=== PATIENT | female | born 1930 | race Caucasian/White ===

== ENCOUNTER 2016-11-29 10:05 | Observation (INO) ==
--- NOTE | 2016-11-29 10:32 | Emergency Department Note ---
Disposition Clinical Impression: Parotitis, Weakness, Dehydration Disposition: Admitted As Inpatient Condition: Good Altered Mental Status HPI - General Chief Complaint: ED Altered Mental Status Stated Complaint: AMS/weakness Time Seen by Provider: 11/29/16 10:21 Source: family Limitations: altered mental status, physical limitation Nursing Notes Reviewed: Yes Vital Signs Reviewed: Yes - History of Present Illness HPI Narrative: Patient here for evaluation of altered mental status. Sent from PCP office. Patient had a fall several days ago and is on Xarelto as well as Plavix. Patient has had foul-smelling urine (wears depends) as well as a cough. Initial concern for activation of sepsis or noted by triage nurse. Patient is awake alert and oriented talking and appears comfortable. Patient has mild tachycardia but is afebrile with normal respirations. - Related Data Home Medications Medication Instructions Recorded Confirmed Memantine [Namenda] 10 mg PO BID 08/30/15 11/29/16 Metoprolol XL (24 HR) Succ [Toprol 25 mg PO QAM 08/30/15 11/29/16 XL] Sertraline [Zoloft] 50 mg PO QAM 08/30/15 11/29/16 Nitrofurantoin [Macrodantin] 50 mg PO HS 02/19/16 11/29/16 Donepezil [Aricept] 10 mg PO HS 04/29/16 11/29/16 Rivaroxaban [Xarelto] 15 mg PO QAM 04/29/16 11/29/16 Clopidogrel [Plavix] 75 mg PO DAILY 11/29/16 11/29/16 Mirtazapine [Remeron] 15 mg PO HS 11/29/16 11/29/16 Rosuvastatin Calcium [Crestor] 10 mg PO HS 11/29/16 11/29/16 Previous Rx's Medication Instructions Recorded Aspirin 81 mg PO DAILY #30 tab.chew 04/30/16 Lisinopril [Zestril] 5 mg PO DAILY #30 tablet 04/30/16 Nitroglycerin 0.4 mg SL Q5MIN PRN #25 tab.subl 04/30/16 Allergies Allergy/AdvReac Type Severity Reaction Status Date / Time No Known Allergies Allergy Verified 11/29/16 10:09 Limitations: ROS unobtainable due to patients medical condition Respiratory: Reports: cough Genitourinary: Reports: other (Foul-smelling urine) Neurological: Reports: other (Altered mental status) Past Medical History - Past Medical History Medical history: Reports: coronary artery disease, DVT, dementia, hepatitis, hypertension, myocardial infarction, osteoporosis, other Surgical history: Reports: cataract, hysterectomy, orthopedic, other, other Psychiatric history: Reports: depression, other CARDIAC CARE NURSE history: Reports: no CARDIAC CARE NURSE history - Social History Smoking Status: Never smoker Smokeless Tobacco Status: No Alcohol use: Reports: none Drug use: Reports: none Physical Exam - General Limitations: altered mental status, physical limitation General appearance: lethargic - Head Head exam: atraumatic, normocephalic - Eye Eye exam: Present: normal appearance - ENT ENT exam: normal exam - Neck Neck exam: Present: normal inspection - Chest Chest inspection: Present: normal inspection, symmetric chest wall rise. Absent : tenderness - Respiratory Respiratory exam: Present: normal lung sounds bilaterally. Absent: respiratory distress, wheezes - Cardiovascular Cardiovascular exam: Present: regular rate, normal rhythm - Abdominal Exam Abdominal exam: Present: soft, Non-Tender - Extremities Exam Extremities exam: Present: normal inspection. Absent: pedal edema - Expanded Neurological Exam Patient oriented to: Present: person, place Speech: Present: fluid speech Cranial nerves: EOM function (II, III, IV, ): Normal, facial sensation (V): Normal, facial palsy (VII): Normal, gag reflex (IX): Normal, spinal accessory function (XI): Normal, tongue deviation (XII): Normal Motor strength - LUE: 5/5 Motor strength - RUE: 5/5 Motor strength - LLE: 5/5 Motor strength - RLE: 5/5 Sensory exam upper extremity: light touch: Normal Sensory exam lower extremity: light touch: Normal Coma Scale Eye Opening: Spontaneous Coma Scale Motor Response: Obeys Commands Coma Scale Verbal Response: Oriented Coma Scale Total: 15 Course - Reevaluation(s) Reevaluation #1: Discussed results with family who feel that after 2 days of acutely decompensating from walking without a walker to having difficulty getting around without significant support that she should needs to stay for further evaluation and due to the unsafety of going home. Reevaluation #2: Discussed again with patient patient states she is feeling somewhat better after fluids. Discussed possible discharge if she feels like her strength is coming back. Currently there is significant shortage of peds and at this time and does not appear to be a life-threatening injury or infection. However she is unsafe to go home until she either symptomatically improves or the family is safe and comfortable taking care of her despite her significant weakening. - Consultations Consultation #1: Discussed with Dr. Jackson. Patient accepted for admission. Consultation #2: Dr. Cloud to bedside for admission with further investigation of peritonitis. Upon reexamination the patient does have swollen parotid gland with what appears to be alecia pus out of Stensen's duct when massaged. He has requested that we go ahead and give Unasyn as well as further image the parotid area to rule out abscess and mass. I discussed with radiology about best possible radiographic imaging and they recommended CT soft tissue neck with IV contrast as well as mentioning specific commenting on the parotid to make sure enough imaging is taken. The patient has arteritis the floor at time of inserting these orders however these orders were inserted and completed Vital Signs Temperature 99.7 F H 11/29/16 10:09 Pulse Rate 109 11/29/16 10:09 Respiratory Rate 14 11/29/16 10:09 Blood Pressure 109/75 11/29/16 10:09 O2 Sat by Pulse Oximetry 94 L 11/29/16 10:09 Temperature 98.7 F 11/29/16 16:05 Pulse Rate 79 11/29/16 16:05 Respiratory Rate 15 11/29/16 16:05 Blood Pressure 158/87 11/29/16 16:05 O2 Sat by Pulse Oximetry 100 11/29/16 16:05 Oxygen Delivery Oxygen Delivery Nasal Cannula Altered Mental Status - Medical Records Medical records reviewed: Yes I reviewed the patient's medical records. - Lab Data Lab results reviewed: Yes I reviewed the patient's lab results. Result diagrams: 11/29/16 10:43 11/29/16 10:43 Lab Results 11/29/16 11/29/16 11/29/16 Range/Units 10:43 10:43 10:43 WBC 10.9 (4.3-11.1) K/mcL RBC 4.73 (3.82-4.97) M/mcL Hgb 14.8 (11.5-15.4) g/dL Hct 43.6 (35.3-44.9) % MCV 92.2 (83.0-100.0) fL MCH 31.3 (28.0-33.3) pg MCHC 33.9 (31.6-35.5) g/dL RDW 14.9 H (11.5-14.5) % Plt Count 194 (140-400) K/mcL MPV 11.8 (9.4-12.4) fL Immature Gran % 0.4 (0-4) % Seg Neutrophils % 78.3 % Lymphocytes % 14.8 % Monocytes % 6.2 % Eosinophils % 0.0 % Basophils % 0.3 % Neutrophils # 8.6 (1.6-8.9) K/mcL Lymphocytes # 1.6 (0.6-4.6) K/mcL Monocytes # 0.7 (0.0-1.3) K/mcL Eosinophils # 0.0 (0.0-0.6) K/mcL Basophils # 0.0 (0.0-0.2) K/mcL PT 13.0 H (9.4-12.1) Seconds INR 1.2 Sodium 136 (136-145) mEq/L Potassium 3.7 (3.5-4.5) mEq/L Chloride 103 (98-109) mEq/L Carbon Dioxide 21 (19-29) mEq/L BUN 18 (7-20) mg/dL Creatinine 0.99 (0.57-1.11) mg/dL Est GFR ( Amer) > 60 (> 60) Est GFR (Non-Af Amer) 53 L (> 60) BUN/Creatinine Ratio 18 (6-26) Glucose 115 H (70-99) mg/dL Calculated Osmolality 285 (280-300) Calcium 9.1 (8.6-10.8) mg/dL Total Bilirubin 0.5 (0.2-1.2) mg/dL Direct Bilirubin 0.3 (0.0-0.5) mg/dL Indirect Bilirubin 0.2 (0.0-1.2) mg/dL AST 45 H (5-34) Units/L ALT 25 (0-55) Units/L Alkaline Phosphatase 86 (38-126) Units/L Troponin I (0-0.03) ng/mL Serum Total Protein 10.0 H (6.0-8.3) g/dL Albumin 3.5 (3.5-5.0) g/dL Globulin 6.5 H (2.4-3.5) g/dL Albumin/Globulin Ratio 0.5 L (1.1-2.2) TSH (0.350-4.840) mcIU/mL Urine Color (Yellow) Urine Clarity (Clear) Urine pH (5.0-8.0) pH Units Ur Specific [place] (1.010-1.025) Urine Protein (Neg-Trace) mg/dL Urine Glucose (UA) (Normal) mg/dL Urine Ketones (Negative) mg/dL Urine Blood (Negative) Urine Nitrite (Negative) Urine Bilirubin (Negative) Urine Urobilinogen (Normal) mg/dL Ur Leukocyte Esterase (Negative) Urine Microscopic RBC (0-3) per hpf Urine Microscopic WBC (0-3) per hpf Ur Squamous Epith Cells (None-Few) per lpf Urine Bacteria (None-Few) per hpf Hyaline Casts (None-Few) per lpf Ur Culture Indicated? (NO) 11/29/16 11/29/16 11/29/16 Range/Units 10:43 10:48 11:03 WBC (4.3-11.1) K/mcL RBC (3.82-4.97) M/mcL Hgb (11.5-15.4) g/dL Hct (35.3-44.9) % MCV (83.0-100.0) fL MCH (28.0-33.3) pg MCHC (31.6-35.5) g/dL RDW (11.5-14.5) % Plt Count (140-400) K/mcL MPV (9.4-12.4) fL Immature Gran % (0-4) % Seg Neutrophils % % Lymphocytes % % Monocytes % % Eosinophils % % Basophils % % Neutrophils # (1.6-8.9) K/mcL Lymphocytes # (0.6-4.6) K/mcL Monocytes # (0.0-1.3) K/mcL Eosinophils # (0.0-0.6) K/mcL Basophils # (0.0-0.2) K/mcL PT (9.4-12.1) Seconds INR Sodium (136-145) mEq/L Potassium (3.5-4.5) mEq/L Chloride (98-109) mEq/L Carbon Dioxide (19-29) mEq/L BUN (7-20) mg/dL Creatinine (0.57-1.11) mg/dL Est GFR ( Amer) (> 60) Est GFR (Non-Af Amer) (> 60) BUN/Creatinine Ratio (6-26) Glucose (70-99) mg/dL Calculated Osmolality (280-300) Calcium (8.6-10.8) mg/dL Total Bilirubin (0.2-1.2) mg/dL Direct Bilirubin (0.0-0.5) mg/dL Indirect Bilirubin (0.0-1.2) mg/dL AST (5-34) Units/L ALT (0-55) Units/L Alkaline Phosphatase (38-126) Units/L Troponin I 0.01 (0-0.03) ng/mL Serum Total Protein (6.0-8.3) g/dL Albumin (3.5-5.0) g/dL Globulin (2.4-3.5) g/dL Albumin/Globulin Ratio (1.1-2.2) TSH 0.945 (0.350-4.840) mcIU/mL Urine Color Yellow (Yellow) Urine Clarity Clear (Clear) Urine pH 5.5 (5.0-8.0) pH Units Ur Specific [place] 1.023 (1.010-1.025) Urine Protein 30 H (Neg-Trace) mg/dL Urine Glucose (UA) Normal (Normal) mg/dL Urine Ketones 40 H (Negative) mg/dL Urine Blood Negative (Negative) Urine Nitrite Negative (Negative) Urine Bilirubin Small H (Negative) Urine Urobilinogen Normal (Normal) mg/dL Ur Leukocyte Esterase Negative (Negative) Urine Microscopic RBC 0-3 (0-3) per hpf Urine Microscopic WBC 0-3 (0-3) per hpf Ur Squamous Epith Cells Many H (None-Few) per lpf Urine Bacteria None Seen (None-Few) per hpf Hyaline Casts Moderate H (None-Few) per lpf Ur Culture Indicated? NO (NO) - Radiology Data Radiology results reviewed: Yes I reviewed the patient's radiology results. Chest X-Ray 11/29/16 10:22 IMPRESSION: COPD with bibasilar chronic interstitial changes related to underlying COPD. No definite acute infiltrate. D/ / Godwin Gale MD / Godwin Gale MD Interpreting Provider: Godwin Gale MD Head CT 11/29/16 10:23 IMPRESSION: No acute intracranial hemorrhage or mass effect. Ventricles are slightly decreased in size from 01/08/2016. Mild cerebral white matter disease similar to the previous exam. Right parotid gland enlargement partially visualized. Findings may be on the basis of parotitis. D/ / Grady Rojas MD / Grady Rojas MD Interpreting Provider: Grady Rjoas MD Soft Tissue Neck CT 11/29/16 14:56 IMPRESSION: Enlargement of the right parotid gland with surrounding inflammation compatible with parotiditis. No abscess collection or sialolith is detected. These changes are presumably related to viral infection. D/ / 11/29/2016 16:09:14 Ayad Ruiz MD / Zara Wong Interpreting Provider: Ayad Ruiz MD - EKG Data EKG attestation: Yes I reviewed and interpreted this EKG. EKG results narrative: EKG shows sinus tachycardia with ventricular rate of 105. [place] 202. QRS 86. QTC 408. Patient has no significant ST elevations or depressions. EKG unchanged from previous of 04/29/16. Attestation Statement - Attestation Attestation: I examined this patient and my medical decision-making was reviewed with the [employer]BER/PA/Advanced Practice Nurse/Resident Physician. I agree with the documented findings, disposition and treatment plan as described except to the extent set forth below. Patient in the emergency department with a chief complaint of altered mental status. Brought in by her children. Worse over the past 2 days. Confused. Weak and unable to walk. Patient had a follow week ago and hit her head but was okay until a couple of days ago. No fever. They note she has foul breath. On exam she is awake and alert. She is in no acute distress. She is satting 91% on room air. Abdomen soft nontender. Lungs clear. Plan. Altered mental status workup with head CT. Patient found to have parotitis. Admitted to medicine.
[2016-11-29 10:53] LABS: Basophils % 0.3 %; Hematocrit 43.6 % (35.3-44.9); Hemoglobin 14.8 g/dL (11.5-15.4); Immature Granulocytes % 0.4 % (0-4); Lymphocytes # 1.6 K/mcL (0.6-4.6); Lymphocytes % 14.8 %; Mean Corpuscular HGB Conc 33.9 g/dL (31.6-35.5); Mean Corpuscular Hemoglobin 31.3 pg (28.0-33.3); Mean Corpuscular Volume 92.2 fL (83.0-100.0); Mean Platelet Volume 11.8 fL (9.4-12.4); Monocytes # 0.7 K/mcL (0.0-1.3); Monocytes % 6.2 %; Neutrophils # 8.6 K/mcL (1.6-8.9); Platelet Count 194 K/mcL (140-400); Red Blood Count 4.73 M/mcL (3.82-4.97); Red Cell Distribution Width 14.9 % (11.5-14.5); Segmented Neutrophils % 78.3 %
[2016-11-29 11:01] LABS: INR 1.2
[2016-11-29 11:06] LABS: Alanine Aminotransferase 25 Units/L (0-55); Albumin 3.5 g/dL (3.5-5.0); Albumin/Globulin Ratio 0.5 (1.1-2.2); Alkaline Phosphatase 86 Units/L (38-126); Aspartate Amino Transferase 45 Units/L (5-34); BUN/Creatinine Ratio 18 (6-26); Bilirubin,Direct 0.3 mg/dL (0.0-0.5); Bilirubin,Indirect 0.2 mg/dL (0.0-1.2); Bilirubin,Total 0.5 mg/dL (0.2-1.2); Blood Urea Nitrogen 18 mg/dL (7-20); Calcium 9.1 mg/dL (8.6-10.8); Carbon Dioxide 21 mEq/L (19-29); Chloride 103 mEq/L (98-109); Globulin 6.5 g/dL (2.4-3.5); Glucose 115 mg/dL (70-99); Osmolality,Calculated 285 (280-300); Potassium 3.7 mEq/L (3.5-4.5); Sodium 136 mEq/L (136-145); eGFR For African Americans > 60 (> 60); eGFR For Non-African Americans 53 (> 60)
[2016-11-29 11:12] LABS: Bilirubin,Urine Small (Negative); Blood,Urine Negative (Negative); Clarity,Urine Clear (Clear); Color,Urine Yellow (Yellow); Glucose,Urine (UA) Normal (Normal); Ketones,Urine 40 mg/dL (Negative); Leukocyte Esterase,Urine Negative (Negative); Nitrite,Urine Negative (Negative); PH,Urine 5.5 pH Units (5.0-8.0); Protein,Urine 30 mg/dL (Neg-Trace); Specific Gravity,Urine 1.023 (1.010-1.025); Urobilinogen,Urine Normal (Normal)
[2016-11-29 11:14] LABS: Bacteria,Urine None Seen per hpf (None-Few); Hyaline Casts,Urine Moderate per lpf (None-Few); RBC,Urine 0-3 per hpf (0-3); Squamous Epithelial Cell,Urine Many per lpf (None-Few); WBC,Urine 0-3 per hpf (0-3)
[2016-11-29] MEDS ORDERED: 0.9 % Sodium Chloride 500 ML IV ONE (14:03)
[2016-11-29] MEDS ORDERED: Ampicillin/Sulbactam 3,000 MG in 0.9 % Sodium Chloride Mini Bag 100 ML IVPB ONE (14:35)
[2016-11-29] MEDS ORDERED: Nitroglycerin 0.4 MG TAB.SUBL SL PRN (16:01)
[2016-11-29] MEDS ORDERED: Naloxone 0.4 MG/ML INJ IVP PRN (16:03)
[2016-11-29] MEDS ORDERED: *HR* HYDROcodone/Acet 5/325 mg TABLET PO PRN (16:03)
[2016-11-29] MEDS ORDERED: Ondansetron 4 MG/2 ML VIAL IVP PRN (16:03)
[2016-11-29] MEDS ORDERED: Ringers Solution, Lactated 1,000 ML ONE (16:35)
[2016-11-29] MEDS: Ringers Solution, Lactated 1,000 ML IVC SCH (16:50)
--- NOTE | 2016-11-29 18:06 | Internal Med History&Physical ---
Date of Encounter: 11/29/16 Time of Encounter: 15:10 Internal Medicine - H&P: HPI Chief complaint: Feeling weak, tired, fell down some days ago. Admitted From: Emergency Dept Plans for Post Hospital Care: Home History of present illness: Ms. Pillai is a 86 year old female who was brought in hospital because of lethargy and inability to walk with her walker, a significant decline from her baseline. No fever reported. Poor oral intake reported. She is a poor historian. She is only able to tell me she felt ill, and reports right jaw pain. She denies nausea or vomiting, but reports poor apetite. She denies new urinary symptoms. When asked why she could not walk, she says she does not know , she agrees to being weak. She lives at home alone, her son lives nearby and come homes daily to check on her. No family at bedside. Attempts to reach her son on the phone fails. She is unable to provide a code status. I will assume FULL CODE for now. ROS: Limited my patient's status, see HPI. Attempt was made to complete a 10- point RIS. Family history: The patient is unable to provide details. Vital Signs Temperature 99.7 F H 11/29/16 10:09 Pulse Rate 109 11/29/16 10:09 Respiratory Rate 14 11/29/16 10:09 Blood Pressure 109/75 11/29/16 10:09 O2 Sat by Pulse Oximetry 94 L 11/29/16 10:09 Temperature 98.7 F 11/29/16 16:05 Pulse Rate 79 11/29/16 16:05 Respiratory Rate 15 11/29/16 16:05 Blood Pressure 158/87 11/29/16 16:05 O2 Sat by Pulse Oximetry 100 11/29/16 16:05 Not in distress, she is ill but not toxic looking. lethargic. Not pale, anicteric, afebrile, acyanotic. Moist mucosa, EOMI, PERRL. HEENT: No JVD. Right parotid swelling and induration. No fluctuance, very tender +++. Some purulence observed over the pancreatitic duct on massaging the parotid. No cervical lymphadenopathy, Chest : CTAB Heart: RRR, HS1/2, no m/r/g. Abdomen: soft, non-tender, no guarding, no rebound, no masses, BS+ : No flank tenderness, no CVA tenderness, no suprapubic tenderness. LEAD CARGOMAN: AAO x 3, no focal neurological deficits. She is logical in is thought process. Neck is supple. Skin: No active skin lesion. Extremities: Trace pedal edema, normal pedal pulses, no calf tenderness, bilaterally Lab Results 11/29/16 11/29/16 11/29/16 Range/Units 10:43 10:43 10:43 WBC 10.9 (4.3-11.1) K/mcL RBC 4.73 (3.82-4.97) M/mcL Hgb 14.8 (11.5-15.4) g/dL Hct 43.6 (35.3-44.9) % MCV 92.2 (83.0-100.0) fL MCH 31.3 (28.0-33.3) pg MCHC 33.9 (31.6-35.5) g/dL RDW 14.9 H (11.5-14.5) % Plt Count 194 (140-400) K/mcL MPV 11.8 (9.4-12.4) fL Immature Gran % 0.4 (0-4) % Seg Neutrophils % 78.3 % Lymphocytes % 14.8 % Monocytes % 6.2 % Eosinophils % 0.0 % Basophils % 0.3 % Neutrophils # 8.6 (1.6-8.9) K/mcL Lymphocytes # 1.6 (0.6-4.6) K/mcL Monocytes # 0.7 (0.0-1.3) K/mcL Eosinophils # 0.0 (0.0-0.6) K/mcL Basophils # 0.0 (0.0-0.2) K/mcL PT 13.0 H (9.4-12.1) Seconds INR 1.2 Sodium 136 (136-145) mEq/L Potassium 3.7 (3.5-4.5) mEq/L Chloride 103 (98-109) mEq/L Carbon Dioxide 21 (19-29) mEq/L BUN 18 (7-20) mg/dL Creatinine 0.99 (0.57-1.11) mg/dL Est GFR ( Amer) > 60 (> 60) Est GFR (Non-Af Amer) 53 L (> 60) BUN/Creatinine Ratio 18 (6-26) Glucose 115 H (70-99) mg/dL Calculated Osmolality 285 (280-300) Calcium 9.1 (8.6-10.8) mg/dL Total Bilirubin 0.5 (0.2-1.2) mg/dL Direct Bilirubin 0.3 (0.0-0.5) mg/dL Indirect Bilirubin 0.2 (0.0-1.2) mg/dL AST 45 H (5-34) Units/L ALT 25 (0-55) Units/L Alkaline Phosphatase 86 (38-126) Units/L Troponin I (0-0.03) ng/mL Serum Total Protein 10.0 H (6.0-8.3) g/dL Albumin 3.5 (3.5-5.0) g/dL Globulin 6.5 H (2.4-3.5) g/dL Albumin/Globulin Ratio 0.5 L (1.1-2.2) TSH (0.350-4.840) mcIU/mL Urine Color (Yellow) Urine Clarity (Clear) Urine pH (5.0-8.0) pH Units Ur Specific [place] (1.010-1.025) Urine Protein (Neg-Trace) mg/dL Urine Glucose (UA) (Normal) mg/dL Urine Ketones (Negative) mg/dL Urine Blood (Negative) Urine Nitrite (Negative) Urine Bilirubin (Negative) Urine Urobilinogen (Normal) mg/dL Ur Leukocyte Esterase (Negative) Urine Microscopic RBC (0-3) per hpf Urine Microscopic WBC (0-3) per hpf Ur Squamous Epith Cells (None-Few) per lpf Urine Bacteria (None-Few) per hpf Hyaline Casts (None-Few) per lpf Ur Culture Indicated? (NO) 11/29/16 11/29/16 11/29/16 Range/Units 10:43 10:48 11:03 WBC (4.3-11.1) K/mcL RBC (3.82-4.97) M/mcL Hgb (11.5-15.4) g/dL Hct (35.3-44.9) % MCV (83.0-100.0) fL MCH (28.0-33.3) pg MCHC (31.6-35.5) g/dL RDW (11.5-14.5) % Plt Count (140-400) K/mcL MPV (9.4-12.4) fL Immature Gran % (0-4) % Seg Neutrophils % % Lymphocytes % % Monocytes % % Eosinophils % % Basophils % % Neutrophils # (1.6-8.9) K/mcL Lymphocytes # (0.6-4.6) K/mcL Monocytes # (0.0-1.3) K/mcL Eosinophils # (0.0-0.6) K/mcL Basophils # (0.0-0.2) K/mcL PT (9.4-12.1) Seconds INR Sodium (136-145) mEq/L Potassium (3.5-4.5) mEq/L Chloride (98-109) mEq/L Carbon Dioxide (19-29) mEq/L BUN (7-20) mg/dL Creatinine (0.57-1.11) mg/dL Est GFR ( Amer) (> 60) Est GFR (Non-Af Amer) (> 60) BUN/Creatinine Ratio (6-26) Glucose (70-99) mg/dL Calculated Osmolality (280-300) Calcium (8.6-10.8) mg/dL Total Bilirubin (0.2-1.2) mg/dL Direct Bilirubin (0.0-0.5) mg/dL Indirect Bilirubin (0.0-1.2) mg/dL AST (5-34) Units/L ALT (0-55) Units/L Alkaline Phosphatase (38-126) Units/L Troponin I 0.01 (0-0.03) ng/mL Serum Total Protein (6.0-8.3) g/dL Albumin (3.5-5.0) g/dL Globulin (2.4-3.5) g/dL Albumin/Globulin Ratio (1.1-2.2) TSH 0.945 (0.350-4.840) mcIU/mL Urine Color Yellow (Yellow) Urine Clarity Clear (Clear) Urine pH 5.5 (5.0-8.0) pH Units Ur Specific [place] 1.023 (1.010-1.025) Urine Protein 30 H (Neg-Trace) mg/dL Urine Glucose (UA) Normal (Normal) mg/dL Urine Ketones 40 H (Negative) mg/dL Urine Blood Negative (Negative) Urine Nitrite Negative (Negative) Urine Bilirubin Small H (Negative) Urine Urobilinogen Normal (Normal) mg/dL Ur Leukocyte Esterase Negative (Negative) Urine Microscopic RBC 0-3 (0-3) per hpf Urine Microscopic WBC 0-3 (0-3) per hpf Ur Squamous Epith Cells Many H (None-Few) per lpf Urine Bacteria None Seen (None-Few) per hpf Hyaline Casts Moderate H (None-Few) per lpf Ur Culture Indicated? NO (NO) EKG shows sinus tachycardia with ventricular rate of 105. [place] 202. QRS 86. QTC 408. Patient has no significant ST elevations or depressions. EKG unchanged from previous of 04/29/16. CXR: Non-acute, no infiltrates Head CT: mild cerebral atrophy, chronic microvascular changes, upper CTsoft tissue of neck: parotitis, no abscess. imp Mild encephalopathy related to acute parotitis and dehydration. Acute right parotitis, no CT evidence for abscess, though purulent material exuding from parotid duct on massaging the right parotid gland. Probably viral with early secondary bacterial infection. Lethargy related to above Mild dehydration due to por intake related to above Chronic morbidities CAD s/p AL DVT/PE on Apixaban HTN Osteoporosis Dementia History of hepatitis. PLAN Admit IVF RL @ 75 IV Unasyn 3 g Q8H Tylenol for pain and fever, may use norco for moderate to severe pain Oral hygiene Pureed diet. Continue other medications of chronic morbidities. On Xarelto for DVT/PE I discussed my assessment with the patient, she verbalized understanding and is agreeable to admission. She is admitted for evaluation and treatment of acute parotitis associated with mild encephalopathy. Past Med Surg Social Fam HX - Past Medical History Medical history: coronary artery disease, DVT, dementia, hepatitis, hypertension , myocardial infarction, osteoporosis, other Psychiatric history: depression, other - Past Surgical History Surgical History: cataract, hysterectomy, orthopedic, other, other - Social History Smoking Status: Never smoker Smokeless Tobacco Status: No Alcohol use: none Drug use: none - Family History Mother Hx Family Cardiac Disorders: Yes (Heart attack) Internal Medicine - H&P: Meds Memantine [Namenda] 10 mg PO BID 08/30/15 [History] Metoprolol XL (24 HR) Succ [Toprol XL] 25 mg PO QAM 08/30/15 [History] Sertraline [Zoloft] 50 mg PO QAM 08/30/15 [History] Nitrofurantoin [Macrodantin] 50 mg PO HS 02/19/16 [History] Donepezil [Aricept] 10 mg PO HS 04/29/16 [History] Rivaroxaban [Xarelto] 15 mg PO QAM 04/29/16 [History] Aspirin 81 mg PO DAILY #30 tab.chew 04/30/16 [Rx] Lisinopril [Zestril] 5 mg PO DAILY #30 tablet 04/30/16 [Rx] Nitroglycerin 0.4 mg SL Q5MIN PRN #25 tab.subl 04/30/16 [Rx] Clopidogrel [Plavix] 75 mg PO DAILY 11/29/16 [History] Mirtazapine [Remeron] 15 mg PO HS 11/29/16 [History] Rosuvastatin Calcium [Crestor] 10 mg PO HS 11/29/16 [History] Allergies No Known Allergies Allergy (Verified 11/29/16 10:09) All Systems PM: A 10-system review of systems was performed and is negative for pertinent findings except as documented above in the HPI. - Constitutional Vitals: Temp Pulse Resp BP Pulse Ox 98.7 F 79 15 158/87 100 11/29/16 16:05 11/29/16 16:05 11/29/16 16:05 11/29/16 16:05 11/29/16 16:05 Internal Med - H&P Results - Labs CBC & Chem 7: 11/29/16 10:43 11/29/16 10:43 - Impressions ITS Impressions Soft Tissue Neck CT 11/29/16 14:56 IMPRESSION: Enlargement of the right parotid gland with surrounding inflammation compatible with parotiditis. No abscess collection or sialolith is detected. These changes are presumably related to viral infection. D/ / 11/29/2016 16:09:14 Ayad Ruiz MD / Zara Wong Interpreting Provider: Ayad Ruiz MD - VTE Reasons for not Prescribing Prophylaxis: Not indicated-Anticoagulated or INR therapeutic
[2016-11-29] MEDS: Acetaminophen 325 MG TABLET PO PRN (19:45)
[2016-11-29] MEDS: Mirtazapine 15 MG TABLET PO SCH (19:46)
[2016-11-29] MEDS: Ampicillin/Sulbactam 3,000 MG in 0.9 % Sodium Chloride Mini Bag 100 ML IVPB SCH (23:34)
[2016-11-30] MEDS: Acetaminophen 325 MG TABLET PO PRN (03:21)
[2016-11-30] MEDS: Ampicillin/Sulbactam 3,000 MG in 0.9 % Sodium Chloride Mini Bag 100 ML IVPB SCH ×3 (08:03→23:11)
[2016-11-30] MEDS: Ringers Solution, Lactated 1,000 ML IVC SCH (08:04)
[2016-11-30] MEDS: Metoprolol XL (24 HR) Succ 25 MG TAB.ER.24H PO SCH (08:05)
[2016-11-30] MEDS: Aspirin 81 MG TAB.CHEW PO SCH (08:05)
[2016-11-30] MEDS: *HR* Rivaroxaban 15 MG TABLET PO SCH (08:05)
--- NOTE | 2016-11-30 11:46 | Electrocardiograph Report ---
[address] [place] [address] Test Date: 2016-11-29 Pat Name: Alycia Pillai Department: 105 Room: 3B13 Gender: F Leasing Agent: : [id number] Requested By: Todd Escobar Order Number: [id number] Reading MD: Zachary Fontanez MD Measurements Intervals Bennett Rate: 105 P: 31 AL: 202 QRS: -68 QRSD: 86 T: 46 QT: 347 QTc: 408 Interpretive Statements SINUS TACHYCARDIA LEFT ANTERIOR FASCICULAR BLOCK POOR R WAVE PROGRESSION INFERIOR MYOCARDIAL INFARCTION, PROBABLY OLD Electronically Signed On 11-30-2016 11:44:46 EST by Zachary Fontanez MD
--- NOTE | 2016-11-30 14:48 | Internal Med Progress Note ---
Date of Encounter: 11/30/16 Time of Encounter: 14:48 - Assessment and plan (1) Volume depletion due to hemorrhage Current Visit: Yes Status: Acute (2) Parotitis Current Visit: Yes Status: Acute - Time Spent With Patient Plan Continue Unasyn. We will consult ENT. Signs of fluid overload with discontinue IV fluid. 25 - 35 minutes - Subjective Interval history: Patient denies any dizziness lightheadedness. Patient denies any chest pain or trouble breathing. Patient denies any change in her bowel movement. Continue to have pain right side of her face - Constitutional Vitals: Temp Pulse Resp BP Pulse Ox 98.2 F 79 15 123/76 94 L 11/30/16 10:52 11/30/16 10:52 11/30/16 10:52 11/30/16 10:52 11/30/16 10:52 - Head Head exam: Present: atraumatic, normocephalic - ENT ENT exam: Present: mucous membranes moist Additional comments: Rt parotid gland tenderness and swelling . - Neck Neck exam general surgery: Present: lymphadenopathy, supple, trachea midline - Respiratory Respiratory exam: Present: decreased breath sounds, rales (Bilateral lung base) . Absent: accessory muscle use, rhonchi, wheezes - Cardiovascular Cardiovascular exam: Present: RRR, +S1, +S2. Absent: diastolic murmur, gallop, rubs, systolic murmur - GI/Abdominal GI/Abdominal exam: Present: normal bowel sounds, soft, no peritoneal signs. Absent: distended, tenderness - Extremities Exam Extremities exam: Present: warm, radial pulses palpable and symetrical. Absent : calf tenderness, cyanotic, pedal edema - Skin Skin exam: Present: dry, intact Internal Medicine: Result - Labs CBC & Chem 7: 11/29/16 10:43 11/29/16 10:43 - ABG Interpretation ABG results: PT/INR, D-dimer PT 13.0 Seconds (9.4-12.1) H 11/29/16 10:43 - Impressions Impressions Soft Tissue Neck CT 11/29/16 14:56 IMPRESSION: Enlargement of the right parotid gland with surrounding inflammation compatible with parotiditis. No abscess collection or sialolith is detected. These changes are presumably related to viral infection. D/ / 11/29/2016 16:09:14 Ayad Ruiz MD / Zara Wong Interpreting Provider: Ayad Ruiz MD - VTE Reasons for not Prescribing Prophylaxis: Not indicated-Anticoagulated or INR therapeutic Consult Discharge Plan - Plan Referrals: Hayde Dodson DO [Primary Care Provider] - 12/07/16 1:30 pm
--- NOTE | 2016-11-30 17:15 | ENT - Consult Note ---
Date of Encounter: 11/30/16 Time of Encounter: 17:13 Assessment and Plan (1) Dehydration Current Visit: Yes Status: Acute Recommend gentle rehydration. (2) Parotitis Current Visit: Yes Status: Acute Of the right parotid gland. This is likely secondary to dehydration. Recommend continuing IV antibiotics and gentle rehydration. We will also start patient on parotid massage and warm compresses to the right parotid gland at least 4 times daily. This was discussed with the nurse that is currently taking care of the patient. Patient to get a dose of her pain medicine prior to massage. It was explained to patient that this is a very necessary procedure to help break up the infection and in the right parotid gland. Patient understands. Also recommend sour candies or sialagogues. History of Present Illness Consult date: 11/30/16 Reason for ENT Consult: other (Right Parotitis) History of present illness: Patient is an 86-year-old female who lives at home with help from a caregiver. Over the last few days she has had decreased by mouth intake. Patient was noted to be dehydrated and began to have swelling in the right face. Patient was brought to the hospital yesterday for evaluation and treatment of this right facial and neck swelling and dehydration. Patient was subsequently admitted and placed on IV antibiotics. I was counseled to do evaluate this patient for her parotitis for further instruction. Patient currently tolerating by mouth. She is taking sour candies by mouth. Patient with some sour taste in the mouth. Patient denies any previous swelling of Parotid gland in the past. Past Med Surg Social Fam HX - Past Medical History Medical history: coronary artery disease, DVT, dementia, hepatitis, hypertension , myocardial infarction, osteoporosis, other Psychiatric history: depression, other - Past Surgical History Surgical History: cataract, hysterectomy, orthopedic, other, other - Social History Smoking Status: Never smoker Smokeless Tobacco Status: No Alcohol use: none Drug use: none - Family History Mother Hx Family Cardiac Disorders: Yes (Heart attack) Medications and Allergies Memantine [Namenda] 10 mg PO BID 08/30/15 [History] Metoprolol XL (24 HR) Succ [Toprol XL] 25 mg PO QAM 08/30/15 [History] Sertraline [Zoloft] 50 mg PO QAM 08/30/15 [History] Nitrofurantoin [Macrodantin] 50 mg PO HS 02/19/16 [History] Donepezil [Aricept] 10 mg PO HS 04/29/16 [History] Rivaroxaban [Xarelto] 15 mg PO QAM 04/29/16 [History] Aspirin 81 mg PO DAILY #30 tab.chew 04/30/16 [Rx] Lisinopril [Zestril] 5 mg PO DAILY #30 tablet 04/30/16 [Rx] Nitroglycerin 0.4 mg SL Q5MIN PRN #25 tab.subl 04/30/16 [Rx] Clopidogrel [Plavix] 75 mg PO DAILY 11/29/16 [History] Mirtazapine [Remeron] 15 mg PO HS 11/29/16 [History] Rosuvastatin Calcium [Crestor] 10 mg PO HS 11/29/16 [History] Allergies No Known Allergies Allergy (Verified 11/29/16 10:09) ENT - ROS - Constitutional Constitutional ROS: as per HPI ENT Exam Initial Vital Signs Temp Pulse Resp BP Pulse Ox 99.7 F H 109 14 109/75 94 L 11/29/16 10:09 11/29/16 10:09 11/29/16 10:09 11/29/16 10:09 11/29/16 10:09 - General physical appearance well developed, no distress - Eyes PERRL, normal ocular movement - ENT normal pinna, normal nares, dry mucosa (Tongue mobile midline. Palate raises symmetrically tonsils are surgically absent bilaterally, small amount of very thick mucus from the right parotid duct on massage of the parotid gland.), Other - Neck trachea midline, no lymphadectomy, other (induration of the right parotid on palpation no fluctuance) - Respiratory normal expansion, normal respiratory effort - Neurologic CN 2-12 grossly intact (Facial nerve movement is symmetric) - Psychiatric oriented to time, oriented to person, oriented to place, speech is normal Exam Initial Vital Signs Temp Pulse Resp BP Pulse Ox 99.7 F H 109 14 109/75 94 L 11/29/16 10:09 11/29/16 10:09 11/29/16 10:09 11/29/16 10:09 11/29/16 10:09 Results - Labs 11/29/16 10:43 11/29/16 10:43 Abnormal lab results RDW 14.9 % (11.5-14.5) H 11/29/16 10:43 PT 13.0 Seconds (9.4-12.1) H 11/29/16 10:43 Est GFR (Non-Af Amer) 53 (> 60) L 11/29/16 10:43 Glucose 115 mg/dL (70-99) H 11/29/16 10:43 AST 45 Units/L (5-34) H 11/29/16 10:43 Serum Total Protein 10.0 g/dL (6.0-8.3) H 11/29/16 10:43 Globulin 6.5 g/dL (2.4-3.5) H 11/29/16 10:43 Albumin/Globulin Ratio 0.5 (1.1-2.2) L 11/29/16 10:43 Urine Protein 30 mg/dL (Neg-Trace) H 11/29/16 11:03 Urine Ketones 40 mg/dL (Negative) H 11/29/16 11:03 Urine Bilirubin Small (Negative) H 11/29/16 11:03 Ur Squamous Epith Cells Many per lpf (None-Few) H 11/29/16 11:03 Hyaline Casts Moderate per lpf (None-Few) H 11/29/16 11:03 All other labs normal. Consult Discharge Plan - Plan Referrals: Hayde Dodson DO [Primary Care Provider] - 12/07/16 1:30 pm
[2016-11-30] MEDS: Mirtazapine 15 MG TABLET PO SCH (19:50)
[2016-12-01] MEDS: Acetaminophen 325 MG TABLET PO PRN (04:23)
[2016-12-01] MEDS: Ampicillin/Sulbactam 3,000 MG in 0.9 % Sodium Chloride Mini Bag 100 ML IVPB SCH (07:23)
[2016-12-01] MEDS: Aspirin 81 MG TAB.CHEW PO SCH (08:48)
[2016-12-01] MEDS: *HR* Rivaroxaban 15 MG TABLET PO SCH (08:49)
[2016-12-01] MEDS: Metoprolol XL (24 HR) Succ 25 MG TAB.ER.24H PO SCH (08:49)
--- NOTE | 2016-12-01 11:16 | Discharge Summary ---
Date of Encounter: 12/01/16 Time of Encounter: 11:14 - Discharge Diagnosis (1) Volume depletion due to hemorrhage Priority: Secondary Status: Acute (2) Parotitis Priority: Primary Status: Acute - Discharge Medications Prescriptions: HYDROcodone/Acet 5/325 mg [[place] 5-325 mg] 1 tab PO Q6HR PRN #40 tablet PRN Reason: Moderate Pain (4-6) Amoxicillin/Clavulanate [Augmentin] 875 mg PO BIDWM #20 tablet Cyanocobalamin (B-12) [Vitamin B12] 1,000 mcg PO DAILY #90 tablet Ergocalciferol (VITAMIN D2) [Drisdol (50,000 Unit)] 50,000 unit PO QWEEK #15 capsule Home Medications: Memantine [Namenda] 10 mg PO BID 08/30/15 [History] Metoprolol XL (24 HR) Succ [Toprol XL] 25 mg PO QAM 08/30/15 [History] Sertraline [Zoloft] 50 mg PO QAM 08/30/15 [History] Nitrofurantoin [Macrodantin] 50 mg PO HS 02/19/16 [History] Donepezil [Aricept] 10 mg PO HS 04/29/16 [History] Rivaroxaban [Xarelto] 15 mg PO QAM 04/29/16 [History] Aspirin 81 mg PO DAILY #30 tab.chew 04/30/16 [Rx] Lisinopril [Zestril] 5 mg PO DAILY #30 tablet 04/30/16 [Rx] Nitroglycerin 0.4 mg SL Q5MIN PRN #25 tab.subl 04/30/16 [Rx] Clopidogrel [Plavix] 75 mg PO DAILY 11/29/16 [History] Mirtazapine [Remeron] 15 mg PO HS 11/29/16 [History] Rosuvastatin Calcium [Crestor] 10 mg PO HS 11/29/16 [History] Amoxicillin/Clavulanate [Augmentin] 875 mg PO BIDWM #20 tablet 12/01/16 [Rx] Cyanocobalamin (B-12) [Vitamin B12] 1,000 mcg PO DAILY #90 tablet 12/01/16 [Rx] Ergocalciferol (VITAMIN D2) [Drisdol (50,000 Unit)] 50,000 unit PO QWEEK #15 capsule 12/01/16 [Rx] HYDROcodone/Acet 5/325 mg [[place] 5-325 mg] 1 tab PO Q6HR PRN #40 tablet [Rx] Allergies/Adverse Reactions: Allergies No Known Allergies Allergy (Verified 11/29/16 10:09) Procedures/tests Complete & Pending: Procedures Performed prior 72 hours Category Date Time Status CT soft tissue neck w con [CT] Stat Cat Scan 11/29/16 14:56 Completed Date of admission: 11/29/16 14:49 Primary care physician: Josesito Tony Consults: 11/29/16 16:09 Consult to Physical Therapy [CONS] Routine Comment: Evaluate, develop and implement POC OT [Consult to Occupational Therapy] [CONS] Routine Comment: Evaluate, develop and implement POC 11/30/16 16:11 Consult to ENT [CONS] Routine Consulting Provider: NASRIN León Reason for Consult: Parotitis Call Completed: Yes Discharging clinician: Kiko Flores - Patient Status Disposition: Home, Self-Care Condition: Good Functional capacity at discharge: uses cane/walker Overall status at discharge: patient is progressing back to baseline - Discharge Instructions Instructions: Hydrocodone/Acetaminophen (By mouth), Amoxicillin/Clavulanate Potassium (By mouth), Ergocalciferol (By mouth), Vitamin B-12 (Cyanocobalamin) ( By mouth), Dehydration (DC), Parotid Duct Obstruction (GEN), Weakness (GEN) Follow Up With: Hayde Dodson DO [Primary Care Provider] - 12/07/16 1:30 pm Additional Instructions: Parotid massage four times a day with firm massage. Warm compresses as needed. Sour candies as often as tolerated. - Diet and Activity Activity: as per physical therapy Diet: low fat, low cholesterol, low salt diet Hospital course: 86-year-old female brought to the hospital with complaining of feeling lethargic inability to walk with her walker. Patient was complaining of generalized weakness. Patient was complaining of right shoulder pain, markedly decreased oral intake due to the. Patient was noted to be dehydrated and began to have swelling in the right face. Patient was subsequently admitted and placed on IV antibiotics. CAT scan face showed right parotid gland swelling no evidence of abscess. Patient responded well to antibiotic, ENT was consulted and recommended to continue antibiotic as an outpatient. Recommended parotid masssour candy. I discussed with ENT again today she agreed with the discharge planning. I had long discussion with the son and patient at bedside. Patient and son feel comfortable for patient to return at home she had caregiver . Patient tolerated all her meals. Patient is ambulating without any problem. Mental status back to baseline - Time Spent with Patient Total time spent providing and/or coordinating discharge services: Greater than 30 minutes - Constitutional Vitals: Temp Pulse Resp BP Pulse Ox 98.5 F 68 15 124/70 96 12/01/16 10:46 12/01/16 10:46 12/01/16 10:46 12/01/16 10:46 12/01/16 10:46 - Head Head exam: Present: atraumatic (marked improvement of her right parotid gland swelling and tenderness ) - Respiratory Respiratory exam: Present: CTAB. Absent: accessory muscle use, rales, rhonchi, wheezes - Cardiovascular Cardiovascular exam: Present: RRR, +S1, +S2. Absent: diastolic murmur, gallop, rubs, systolic murmur - GI/Abdominal GI/Abdominal exam: Present: normal bowel sounds, soft, no peritoneal signs. Absent: distended, tenderness - Extremities Exam Extremities exam: Present: warm, radial pulses palpable and symetrical. Absent : calf tenderness, cyanotic, pedal edema - Skin Skin exam: Present: dry, intact - VTE Reasons for not Prescribing Prophylaxis: Not indicated-Anticoagulated or INR therapeutic
[2016-12-01 14:58] VITALS: BP 133/85
--- NOTE | 2016-12-07 16:58 | Physician Discharge Referral ---
ExtendedCare Referral Info Transfer To: SNF Provider in Charge after Transfer: PCP Institutional Level of Care: Intermediate - MR - Transfer Medications Prescriptions: HYDROcodone/Acet 5/325 mg [[place] 5-325 mg] 1 tab PO Q6HR PRN #40 tablet PRN Reason: Moderate Pain (4-6) Amoxicillin/Clavulanate [Augmentin] 875 mg PO BIDWM #20 tablet Cyanocobalamin (B-12) [Vitamin B12] 1,000 mcg PO DAILY #90 tablet Ergocalciferol (VITAMIN D2) [Drisdol (50,000 Unit)] 50,000 unit PO QWEEK #15 capsule Home Medications: Memantine [Namenda] 10 mg PO BID 08/30/15 [History] Metoprolol XL (24 HR) Succ [Toprol XL] 25 mg PO QAM 08/30/15 [History] Sertraline [Zoloft] 50 mg PO QAM 08/30/15 [History] Nitrofurantoin [Macrodantin] 50 mg PO HS 02/19/16 [History] Donepezil [Aricept] 10 mg PO HS 04/29/16 [History] Rivaroxaban [Xarelto] 15 mg PO QAM 04/29/16 [History] Aspirin 81 mg PO DAILY #30 tab.chew 04/30/16 [Rx] Lisinopril [Zestril] 5 mg PO DAILY #30 tablet 04/30/16 [Rx] Nitroglycerin 0.4 mg SL Q5MIN PRN #25 tab.subl 04/30/16 [Rx] Clopidogrel [Plavix] 75 mg PO DAILY 11/29/16 [History] Mirtazapine [Remeron] 15 mg PO HS 11/29/16 [History] Rosuvastatin Calcium [Crestor] 10 mg PO HS 11/29/16 [History] Amoxicillin/Clavulanate [Augmentin] 875 mg PO BIDWM #20 tablet 12/01/16 [Rx] Cyanocobalamin (B-12) [Vitamin B12] 1,000 mcg PO DAILY #90 tablet 12/01/16 [Rx] Ergocalciferol (VITAMIN D2) [Drisdol (50,000 Unit)] 50,000 unit PO QWEEK #15 capsule 12/01/16 [Rx] HYDROcodone/Acet 5/325 mg [[place] 5-325 mg] 1 tab PO Q6HR PRN #40 tablet [Rx] Allergies/Adverse Reactions: Allergies No Known Allergies Allergy (Verified 11/29/16 10:09) - Respiratory Orders Oxygen / L per min Smoking Cessation: Smoking cessation has been advised. For more information, call the [place] Tobacco Quit Line at 8-349-AQYJ-NOW. - Mobility Orders Ambulate - Rehabiliation Orders Rehab Orders: Evaluation for Physical Therapy, Evaluation for Occupational Therapy - Treatments Skin tear care topically daily PRN per policy - Diet Orders Regular CERTIFICATION: I certify that the transfer of the above named patient to an Extended Care Facility is necessary for the continuing treatment of the diagnosis listed. The above information is true and accurate reflection of patient's current condition. Confidential - Redisclosure prohibited without a patient's written consent.
--- NOTE | 2016-12-08 11:48 | Physician Discharge Referral ---
Home Health/Hosp Referral Info Transfer to: Home Health Provider in Charge Post Discharge: PCP - Diagnosis (1) Parotitis Status: Acute (2) Volume depletion due to hemorrhage Status: Acute (3) Weakness Status: Acute (4) CAD (coronary artery disease) Status: Chronic (5) Dementia Status: Chronic (6) HTN (hypertension) Status: Chronic - Respiratory Orders Smoking Cessation: Smoking cessation has been advised. For more information, call the [place] Tobacco Quit Line at 3-467-IMGD-NOW. - Diet/Nutrition Diet/Nutrition Orders: Cardiac - Activity Activity Orders: Ambulate, Walker - Services Needed Following services are medically necessary services: Nursing, Physical Therapy - Transfer Medications Prescriptions: HYDROcodone/Acet 5/325 mg [[place] 5-325 mg] 1 tab PO Q6HR PRN #40 tablet PRN Reason: Moderate Pain (4-6) Amoxicillin/Clavulanate [Augmentin] 875 mg PO BIDWM #20 tablet Cyanocobalamin (B-12) [Vitamin B12] 1,000 mcg PO DAILY #90 tablet Ergocalciferol (VITAMIN D2) [Drisdol (50,000 Unit)] 50,000 unit PO QWEEK #15 capsule Home Medications: Memantine [Namenda] 10 mg PO BID 08/30/15 [History] Metoprolol XL (24 HR) Succ [Toprol XL] 25 mg PO QAM 08/30/15 [History] Sertraline [Zoloft] 50 mg PO QAM 08/30/15 [History] Nitrofurantoin [Macrodantin] 50 mg PO HS 02/19/16 [History] Donepezil [Aricept] 10 mg PO HS 04/29/16 [History] Rivaroxaban [Xarelto] 15 mg PO QAM 04/29/16 [History] Aspirin 81 mg PO DAILY #30 tab.chew 04/30/16 [Rx] Lisinopril [Zestril] 5 mg PO DAILY #30 tablet 04/30/16 [Rx] Nitroglycerin 0.4 mg SL Q5MIN PRN #25 tab.subl 04/30/16 [Rx] Clopidogrel [Plavix] 75 mg PO DAILY 11/29/16 [History] Mirtazapine [Remeron] 15 mg PO HS 11/29/16 [History] Rosuvastatin Calcium [Crestor] 10 mg PO HS 11/29/16 [History] Amoxicillin/Clavulanate [Augmentin] 875 mg PO BIDWM #20 tablet 12/01/16 [Rx] Cyanocobalamin (B-12) [Vitamin B12] 1,000 mcg PO DAILY #90 tablet 12/01/16 [Rx] Ergocalciferol (VITAMIN D2) [Drisdol (50,000 Unit)] 50,000 unit PO QWEEK #15 capsule 12/01/16 [Rx] HYDROcodone/Acet 5/325 mg [[place] 5-325 mg] 1 tab PO Q6HR PRN #40 tablet [Rx] Allergies/Adverse Reactions: Allergies No Known Allergies Allergy (Verified 11/29/16 10:09) Certification: Further, I certify that my clinical findings support that this patient is homebound (i.e. absences from home require considerable and taxing effort and are for medical reasons or bahai services or infrequently or short duration when for other reasons) because: Homebound Reason: Patient requires assistance of a person or device to safely leave home, Altered mental status requiring supervision when leaving home, Severity of cardiac or pulmonary status limits activity tolerance Attestation: My signature below is to certify that this patient is under my care and that I, or nurse practitioner, or a physician's habilitation assistant working with me, has a face-to -face encounter with this patient.
== END 2016-12-01 15:23 | disposition home health service (06) ==
LOC: EMEROO 10:05 → 3BNU 10:05
PROVIDERS: ADMIT Nurse Practitioner Family; ATTEND Nurse Practitioner Family

== ENCOUNTER 2017-12-10 11:24 | Inpatient (IN) ==
--- NOTE | 2017-12-10 11:43 | Emergency Department Note ---
Disposition Clinical Impression: Pneumonia Qualifiers: Pneumonia type: due to unspecified organism Laterality: left Lung location: lower lobe of lung Qualified Code(s): J18.1 - Lobar pneumonia, unspecified organism Disposition: Admitted As Inpatient Condition: Fair Referrals: Hayde Dodson DO [Primary Care Provider] - Forms: ED Satisfaction Letter Time of Disposition: 15:10 General Adult HPI - General Chief complaint: ED Altered Mental Status Stated complaint: confusion, hypoxia Time Seen by Provider: 12/10/17 11:27 Source: family, EMS Mode of arrival: EMS Limitations: no limitations Nursing Notes Reviewed: Yes Vital Signs Reviewed: Yes - History of Present Illness HPI Narrative: Patient is an 87-year-old female with a past medical history of dementia, hypertension, ID, [employer] 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 The patient lives at home and has [id number] care, when her daughter was visiting this morning she noticed that the patient does not know who she has her 2 other family members are that she normally would. States that she has also had a cough and congestion and recent sick exposure with one of her sitters being diagnosed recently with bronchitis. Additional history includes the patient being treated for a recent urinary tract infection which she received a shot of Rocephin 2 weeks ago and was placed on Bactrim. Patient herself is sitting up in bed she is alert and talkative initially upon arrival her oxygen saturation was in the low 90s and the squad stated that they did give her one breathing treatment. - Related Data Home Medications Medication Instructions Recorded Confirmed Memantine [Namenda] 10 mg PO BID 08/30/15 12/10/17 Metoprolol XL (24 HR) Succ [Toprol 25 mg PO QAM 08/30/15 12/10/17 XL] Sertraline [Zoloft] 50 mg PO QAM 08/30/15 12/10/17 Donepezil [Aricept] 10 mg PO HS 04/29/16 12/10/17 Rivaroxaban [Xarelto] 15 mg PO BID 04/29/16 12/10/17 Rosuvastatin Calcium [Crestor] 10 mg PO HS 11/29/16 12/10/17 Ergocalciferol (VITAMIN D2) 50,000 unit PO WE 12/10/17 12/10/17 [Drisdol (50,000 Unit)] Fluticasone Propionate Nasal 2 spr NS DAILY PRN 12/10/17 12/10/17 [Flonase] Furosemide [Lasix] 20 mg PO DAILY 12/10/17 12/10/17 Sulfamethoxazole/Trimeth DS 1 each PO DAILY 12/10/17 12/10/17 [Bactrim DS] Previous Rx's Medication Instructions Recorded Lisinopril [Zestril] 5 mg PO DAILY #30 tablet 04/30/16 Nitroglycerin 0.4 mg SL Q5MIN PRN #25 tab.subl 04/30/16 Cyanocobalamin (B-12) [Vitamin B12] 1,000 mcg PO DAILY #90 tablet 12/01/16 Allergies Allergy/AdvReac Type Severity Reaction Status Date / Time No Known Allergies Allergy Verified 11/29/16 10:09 All systems ED: reviewed and negative except as stated. Review of Systems: As Per HPI Past Medical History - Past Medical History Attestation: Yes The following information was validated with the patient. Medical history: Reports: coronary artery disease, DVT, dementia, hepatitis, hypertension, myocardial infarction, osteoporosis, other Surgical history: Reports: cataract, hysterectomy, orthopedic, other, other Psychiatric history: Reports: depression, other [employer] history: Reports: no [employer] history - Social History Smoking Status: Never smoker Smokeless Tobacco Status: No Alcohol use: Reports: none Drug use: Reports: none Physical Exam CONSTITUTIONAL: Alert, well-nourished, in no acute distress at this time. She is requiring 2L NC oxygen saturation at 94%. She is talkative and she is able to state her daughter's name and who she is at this time which is her baseline. HEAD: Normocephalic; atraumatic. EYES: PERRL, no scleral icterus. NOSE: The nose is normal in appearance without rhinorrhea RESP: Normal chest excursion with respiration; Patient has rales in the left lower base on exam. CARD: Regular rhythm, without murmurs, rub or gallop ABD: Non-distended; non-tender, soft,without rigidity, rebound or guarding SKIN: Normal for age and race; warm and dry; no apparent lesions Course Course Narrative: Patient is presenting with increase in confusion with history of cough and congestion and recent sick contact. Due to the patient's recent change in mental status order a head CT. Also order basic labs of the patient's obtain blood cultures and perform a chest x-ray and urinalysis to rule out infection. Patient's blood pressure is stable at this time and she is saturated in the 90% on 2 L nasal cannula and in no acute distress. - Reevaluation(s) Reevaluation #1: Labs reviewed. Antibiotics ordered. Time: 13:33 Reevaluation #2: Admitted to Dr. aBss for pneumonia. Time: 15:10 Vital Signs Temperature 100 F H 12/10/17 11:30 Pulse Rate 99 12/10/17 11:30 Respiratory Rate 16 12/10/17 11:30 Blood Pressure 125/74 12/10/17 11:30 O2 Sat by Pulse Oximetry 92 12/10/17 11:30 Temperature 100 F H 12/10/17 11:30 Pulse Rate 99 12/10/17 11:30 Respiratory Rate 16 12/10/17 11:30 Blood Pressure 125/74 12/10/17 11:30 O2 Sat by Pulse Oximetry 92 12/10/17 12:08 Oxygen Delivery Oxygen Delivery Nasal Cannula Medical Decision Making - Medical Records Medical records reviewed: Yes I reviewed the patient's medical records. - Lab Data Lab results reviewed: Yes I reviewed the patient's lab results. Result diagrams: 12/10/17 11:58 12/10/17 11:58 Lab Results 12/10/17 12/10/17 12/10/17 Range/Units 11:53 11:58 11:58 WBC (4.3-11.1) K/mcL RBC (3.82-4.97) M/mcL Hgb (11.5-15.4) g/dL Hct (35.3-44.9) % MCV (83.0-100.0) fL MCH (28.0-33.3) pg MCHC (31.6-35.5) g/dL RDW (11.5-14.5) % Plt Count (140-400) K/mcL MPV (9.4-12.4) fL Immature Gran % (0-4) % Seg Neutrophils % % Lymphocytes % % Monocytes % % Eosinophils % % Basophils % % Neutrophils # (1.6-8.9) K/mcL Lymphocytes # (0.6-4.6) K/mcL Monocytes # (0.0-1.3) K/mcL Eosinophils # (0.0-0.6) K/mcL Basophils # (0.0-0.2) K/mcL Nucleated RBCs/100 WBC (0) /100 WBC Platelet Estimate (Normal) PT 42.8 H (9.4-12.1) Seconds INR 3.9 APTT 49.5 H (26.0-36.0) Seconds Sample Site ABG pH (7.32-7.45) pH Units ABG pCO2 (35-45) mmHg ABG pO2 (85-104) mmHg ABG HCO3 (21-27) mEq/L ABG Total CO2 (20-26) mEq/L ABG O2 Saturation (95-98) % ABG Base Excess (-2 to 3) mEq/L Magno Test Inspired O2 (1-15=lpm [id number]=%) Sodium (136-145) mEq/L Potassium (3.5-5.1) mEq/L Chloride (98-107) mEq/L Carbon Dioxide (23-29) mEq/L BUN (8-23) mg/dL Creatinine (0.60-1.20) mg/dL Est GFR ( Amer) (> 60) Est GFR (Non-Af Amer) (> 60) BUN/Creatinine Ratio (6-26) Glucose (70-105) mg/dL Calculated Osmolality (280-300) Lactic Acid (0.5-2.2) mmol/L Calcium (8.6-10.3) mg/dL Total Bilirubin 0.7 (0.3-1.0) mg/dL Direct Bilirubin 0.3 H (0.0-0.2) mg/dL Indirect Bilirubin 0.4 (0.0-1.2) mg/dL AST 140 H (13-39) Units/L ALT 75 H (7-52) Units/L Alkaline Phosphatase 92 (34-104) Units/L Serum Total Protein 8.1 (6.4-8.9) g/dL Albumin 3.3 L (3.5-5.7) g/dL Globulin 4.8 H (2.4-3.5) g/dL Albumin/Globulin Ratio 0.7 L (1.1-2.2) Urine Color Dark Yellow (Yellow) Urine Clarity Cloudy A (Clear) Urine pH 5.5 (5.0-8.0) pH Units Ur Specific [place] 1.021 (1.010-1.025) Urine Protein 100 H (Neg-Trace) mg/dL Urine Glucose (UA) Normal (Normal) mg/dL Urine Ketones Negative (Negative) mg/dL Urine Blood Moderate H (Negative) Urine Nitrite Negative (Negative) Urine Bilirubin Small H (Negative) Urine Urobilinogen Normal (Normal) mg/dL Ur Leukocyte Esterase Negative (Negative) Urine Microscopic RBC 3-5 H (0-3) per hpf Urine Microscopic WBC 5-15 H (0-3) per hpf Ur Squamous Epith Cells Many H (None-Few) per lpf Ur Renal Epithelial Cell Few (None-Few) per hpf Amorphous Sediment Many H (Few) Urine Bacteria Many H (None-Few) per hpf Granular Casts Many H (None Seen) per lpf Ur Culture Indicated? NO (NO) 12/10/17 12/10/17 12/10/17 Range/Units 11:58 11:58 11:58 WBC 15.7 H (4.3-11.1) K/mcL RBC 4.33 (3.82-4.97) M/mcL Hgb 13.3 (11.5-15.4) g/dL Hct 38.9 (35.3-44.9) % MCV 89.8 (83.0-100.0) fL MCH 30.7 (28.0-33.3) pg MCHC 34.2 (31.6-35.5) g/dL RDW 14.8 H (11.5-14.5) % Plt Count 265 (140-400) K/mcL MPV 11.5 (9.4-12.4) fL Immature Gran % 0.6 (0-4) % Seg Neutrophils % 82.4 % Lymphocytes % 10.0 % Monocytes % 6.6 % Eosinophils % 0.0 % Basophils % 0.4 % Neutrophils # 12.9 H (1.6-8.9) K/mcL Lymphocytes # 1.6 (0.6-4.6) K/mcL Monocytes # 1.0 (0.0-1.3) K/mcL Eosinophils # 0.0 (0.0-0.6) K/mcL Basophils # 0.1 (0.0-0.2) K/mcL Nucleated RBCs/100 WBC 0.1 H (0) /100 WBC Platelet Estimate Normal (Normal) PT (9.4-12.1) Seconds INR APTT (26.0-36.0) Seconds Sample Site L Radial ABG pH 7.48 H (7.32-7.45) pH Units ABG pCO2 29 L (35-45) mmHg ABG pO2 61 L (85-104) mmHg ABG HCO3 22 (21-27) mEq/L ABG Total CO2 23 (20-26) mEq/L ABG O2 Saturation 93 L (95-98) % ABG Base Excess -1 (-2 to 3) mEq/L Magno Test N/A Inspired O2 21.0 (1-15=lpm [id number]=%) Sodium 131 L (136-145) mEq/L Potassium 3.6 (3.5-5.1) mEq/L Chloride 97 L (98-107) mEq/L Carbon Dioxide 23 (23-29) mEq/L BUN 23 (8-23) mg/dL Creatinine 0.98 (0.60-1.20) mg/dL Est GFR ( Amer) > 60 (> 60) Est GFR (Non-Af Amer) 54 L (> 60) BUN/Creatinine Ratio 23 (6-26) Glucose 147 H (70-105) mg/dL Calculated Osmolality 278 L (280-300) Lactic Acid (0.5-2.2) mmol/L Calcium 8.5 L (8.6-10.3) mg/dL Total Bilirubin (0.3-1.0) mg/dL Direct Bilirubin (0.0-0.2) mg/dL Indirect Bilirubin (0.0-1.2) mg/dL AST (13-39) Units/L ALT (7-52) Units/L Alkaline Phosphatase (34-104) Units/L Serum Total Protein (6.4-8.9) g/dL Albumin (3.5-5.7) g/dL Globulin (2.4-3.5) g/dL Albumin/Globulin Ratio (1.1-2.2) Urine Color (Yellow) Urine Clarity (Clear) Urine pH (5.0-8.0) pH Units Ur Specific [place] (1.010-1.025) Urine Protein (Neg-Trace) mg/dL Urine Glucose (UA) (Normal) mg/dL Urine Ketones (Negative) mg/dL Urine Blood (Negative) Urine Nitrite (Negative) Urine Bilirubin (Negative) Urine Urobilinogen (Normal) mg/dL Ur Leukocyte Esterase (Negative) Urine Microscopic RBC (0-3) per hpf Urine Microscopic WBC (0-3) per hpf Ur Squamous Epith Cells (None-Few) per lpf Ur Renal Epithelial Cell (None-Few) per hpf Amorphous Sediment (Few) Urine Bacteria (None-Few) per hpf Granular Casts (None Seen) per lpf Ur Culture Indicated? (NO) 12/10/17 Range/Units 13:46 WBC (4.3-11.1) K/mcL RBC (3.82-4.97) M/mcL Hgb (11.5-15.4) g/dL Hct (35.3-44.9) % MCV (83.0-100.0) fL MCH (28.0-33.3) pg MCHC (31.6-35.5) g/dL RDW (11.5-14.5) % Plt Count (140-400) K/mcL MPV (9.4-12.4) fL Immature Gran % (0-4) % Seg Neutrophils % % Lymphocytes % % Monocytes % % Eosinophils % % Basophils % % Neutrophils # (1.6-8.9) K/mcL Lymphocytes # (0.6-4.6) K/mcL Monocytes # (0.0-1.3) K/mcL Eosinophils # (0.0-0.6) K/mcL Basophils # (0.0-0.2) K/mcL Nucleated RBCs/100 WBC (0) /100 WBC Platelet Estimate (Normal) PT (9.4-12.1) Seconds INR APTT (26.0-36.0) Seconds Sample Site ABG pH (7.32-7.45) pH Units ABG pCO2 (35-45) mmHg ABG pO2 (85-104) mmHg ABG HCO3 (21-27) mEq/L ABG Total CO2 (20-26) mEq/L ABG O2 Saturation (95-98) % ABG Base Excess (-2 to 3) mEq/L Magno Test Inspired O2 (1-15=lpm [id number]=%) Sodium (136-145) mEq/L Potassium (3.5-5.1) mEq/L Chloride (98-107) mEq/L Carbon Dioxide (23-29) mEq/L BUN (8-23) mg/dL Creatinine (0.60-1.20) mg/dL Est GFR ( Amer) (> 60) Est GFR (Non-Af Amer) (> 60) BUN/Creatinine Ratio (6-26) Glucose (70-105) mg/dL Calculated Osmolality (280-300) Lactic Acid 1.4 (0.5-2.2) mmol/L Calcium (8.6-10.3) mg/dL Total Bilirubin (0.3-1.0) mg/dL Direct Bilirubin (0.0-0.2) mg/dL Indirect Bilirubin (0.0-1.2) mg/dL AST (13-39) Units/L ALT (7-52) Units/L Alkaline Phosphatase (34-104) Units/L Serum Total Protein (6.4-8.9) g/dL Albumin (3.5-5.7) g/dL Globulin (2.4-3.5) g/dL Albumin/Globulin Ratio (1.1-2.2) Urine Color (Yellow) Urine Clarity (Clear) Urine pH (5.0-8.0) pH Units Ur Specific [place] (1.010-1.025) Urine Protein (Neg-Trace) mg/dL Urine Glucose (UA) (Normal) mg/dL Urine Ketones (Negative) mg/dL Urine Blood (Negative) Urine Nitrite (Negative) Urine Bilirubin (Negative) Urine Urobilinogen (Normal) mg/dL Ur Leukocyte Esterase (Negative) Urine Microscopic RBC (0-3) per hpf Urine Microscopic WBC (0-3) per hpf Ur Squamous Epith Cells (None-Few) per lpf Ur Renal Epithelial Cell (None-Few) per hpf Amorphous Sediment (Few) Urine Bacteria (None-Few) per hpf Granular Casts (None Seen) per lpf Ur Culture Indicated? (NO) - Radiology Data Radiology results reviewed: Yes I reviewed the patient's radiology results. Chest X-Ray 12/10/17 11:37 IMPRESSION: Possible left lower lobe pneumonia. Otherwise, stable chest D/ / William Villareal MD / William Villareal MD Interpreting Provider: William Villareal MD - EKG Data EKG #1 EKG attestation: No I reviewed and interpreted this EKG.
--- NOTE | 2017-12-10 11:49 | Emergency Department Note ---
START Narrative - START START: I examined this patient and my medical decision-making was reviewed with the Resident Physician. I agree with the documented findings, disposition and treatment plan as described except to the extent set forth below. 87-year-old female from home was brought into the ER for multiple complaints. Family has noted that she has been increasingly confused. She has no previous stroke or confusion problems in the past. She was found to be hypoxic with a fever. She has been battling urinary tract infections. Etiologies of all this could be pneumonia versus UTI. Patient will need worked up for the hypoxia. ABG chest x-ray CT head as well as screening lab work. Patient will need to be admitted.
[2017-12-10 12:02] LABS: ABG Base Excess -1 mEq/L (-2 to 3); ABG HCO3 22 mEq/L (21-27); ABG Oxygen Saturation 93 % (95-98); ABG PCO2 29 mmHg (35-45); ABG PH 7.48 pH Units (7.32-7.45); ABG PO2 61 mmHg (85-104); ABG TCO2 23 mEq/L (20-26)
[2017-12-10 12:12] LABS: Bilirubin,Urine Small (Negative); Blood,Urine Moderate (Negative); Clarity,Urine Cloudy (Clear); Color,Urine Dark Yellow (Yellow); Glucose,Urine (UA) Normal (Normal); Ketones,Urine Negative (Negative); Leukocyte Esterase,Urine Negative (Negative); Nitrite,Urine Negative (Negative); PH,Urine 5.5 pH Units (5.0-8.0); Protein,Urine 100 mg/dL (Neg-Trace); Specific Gravity,Urine 1.021 (1.010-1.025); Urobilinogen,Urine Normal (Normal)
[2017-12-10 12:16] LABS: Squamous Epithelial Cell,Urine Many per lpf (None-Few)
[2017-12-10 12:29] LABS: Basophils # 0.1 K/mcL (0.0-0.2); Basophils % 0.4 %; Hematocrit 38.9 % (35.3-44.9); Hemoglobin 13.3 g/dL (11.5-15.4); Immature Granulocytes % 0.6 % (0-4); Lymphocytes # 1.6 K/mcL (0.6-4.6); Mean Corpuscular HGB Conc 34.2 g/dL (31.6-35.5); Mean Corpuscular Hemoglobin 30.7 pg (28.0-33.3); Mean Corpuscular Volume 89.8 fL (83.0-100.0); Mean Platelet Volume 11.5 fL (9.4-12.4); Monocytes % 6.6 %; Neutrophils # 12.9 K/mcL (1.6-8.9); Nucleated Red Blood Cells 0.1 /100 WBC (0); Platelet Count 265 K/mcL (140-400); Red Blood Count 4.33 M/mcL (3.82-4.97); Red Cell Distribution Width 14.8 % (11.5-14.5); Segmented Neutrophils % 82.4 %
[2017-12-10 12:34] LABS: INR 3.9; Prothrombin Time 42.8 Seconds (9.4-12.1)
[2017-12-10 12:35] LABS: Granular Casts,Urine Many per lpf (None Seen)
[2017-12-10 12:36] LABS: Amorphous Sediment,Urine Many (Few); Bacteria,Urine Many per hpf (None-Few)
[2017-12-10 12:37] LABS: Activated Partial Thrombo Time 49.5 Seconds (26.0-36.0)
[2017-12-10 12:37] LABS: Renal Epithelial Cells,Urine Few per hpf (None-Few)
[2017-12-10 12:47] LABS: Albumin 3.3 g/dL (3.5-5.7); Albumin/Globulin Ratio 0.7 (1.1-2.2); Bilirubin,Direct 0.3 mg/dL (0.0-0.2); Bilirubin,Indirect 0.4 mg/dL (0.0-1.2); Bilirubin,Total 0.7 mg/dL (0.3-1.0); Globulin 4.8 g/dL (2.4-3.5); Total Protein 8.1 g/dL (6.4-8.9)
[2017-12-10 12:51] LABS: BUN/Creatinine Ratio 23 (6-26); Blood Urea Nitrogen 23 mg/dL (8-23); Calcium 8.5 mg/dL (8.6-10.3); Carbon Dioxide 23 mEq/L (23-29); Chloride 97 mEq/L (98-107); Glucose 147 mg/dL (70-105); Osmolality,Calculated 278 (280-300); Potassium 3.6 mEq/L (3.5-5.1); Sodium 131 mEq/L (136-145); eGFR For African Americans > 60 (> 60); eGFR For Non-African Americans 54 (> 60)
[2017-12-10 12:59] LABS: Platelet Estimate Normal (Normal)
[2017-12-10] MEDS ORDERED: Azithromycin 500 MG in D5% in Water 250 ML IVPB ONE (13:31)
[2017-12-10] MEDS ORDERED: cefTRIAXone 1,000 MG in Water for inj. (sterile) 20 ML 10 ML IVP ONE (13:31)
[2017-12-10 15:12] LABS: Troponin I 0.09 ng/mL (< 0.04)
--- NOTE | 2017-12-10 16:12 | Internal Med History&Physical ---
Date of Encounter: 12/10/17 Time of Encounter: 16:09 Assessment and Plan (1) Encephalopathy Current visit: Yes Status: Acute Patient appearing to improve. Likely from sepsis and hypoxia, she has improved and conversing and pleasant. CT head was negative for any acute changes. She is saturating now around 94% on 2 L. (2) Sepsis Current visit: Yes Status: Acute Source pneumonia vs UTI 2 SIRS criteria on admission for HR and leukocytosis - Follow-up blood cultures, resp and urine cultures - Continue Rocephin and azithromycin Qualifiers: Sepsis type: sepsis due to unspecified organism Qualified Code(s): A41.9 - Sepsis, unspecified organism (3) Acute respiratory failure with hypoxia Current visit: Yes Status: Acute Secondary to pneumonia. - Continue rocephin and azithromycin - supplemental O2 as needed, wean as tolerated - Follow-up blood cultures, resp cultures (4) Pneumonia Current visit: Yes Status: Acute Continue Rocephin azithromycin Follow-up respiratory cultures and blood cultures Qualifiers: Pneumonia type: due to unspecified organism Laterality: left Lung location: lower lobe of lung Qualified Code(s): J18.1 - Lobar pneumonia, unspecified organism (5) History of pulmonary embolus (PE) Current visit: Yes Status: Acute Continue Xarelto (6) Hepatitis B Current visit: Yes Status: Acute LFTs are borderline elevated but stable Qualifiers: Viral hepatitis chronicity: chronic Hepatic coma status: without hepatic coma Hepatitis delta agent presence: without delta-agent Qualified Code(s): B18.1 - Chronic viral hepatitis B without delta-agent (7) History of MN (myocardial infarction) Current visit: Yes Status: Acute (8) Vaginal prolapse Current visit: Yes Status: Acute (9) DVT (deep venous thrombosis) Current visit: No Status: Acute Qualifiers: DVT location: lower extremity Affected thrombotic vein of extremity: unspecified vein of extremity Chronicity: chronic Laterality: unspecified laterality Qualified Code(s): 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 (10) NPH (normal pressure hydrocephalus) Current visit: No Status: Acute (11) S/P insertion of IVC (inferior vena caval) filter Current visit: No Status: Acute (12) CAD (coronary artery disease) Current visit: No Status: Chronic Qualifiers: Qualified Code(s): I25.10 - Atherosclerotic heart disease of [place] coronary artery without angina pectoris (13) Dementia Current visit: No Status: Chronic Qualifiers: Dementia type: unspecified type Dementia behavioral disturbance: without behavioral disturbance Qualified Code(s): F03.90 - Unspecified dementia without behavioral disturbance (14) HTN (hypertension) Current visit: No Status: Chronic Qualifiers: Hypertension type: essential hypertension Qualified Code(s): I10 - Essential (primary) hypertension (15) Elevated troponin Current visit: No Status: Acute Patient had known hypoxia from pneumonia. She has SOB with cough but denies chest pain, palpitations, n/v, numbness/tingling. Likely demand ischemia, will trend troponin and monitor for improvement. She is on Xarelto. Internal Medicine - H&P: HPI History of present illness: Ms. Pillai is a 87 year old female with history of dementia, CAD, history of PE on Xarelto, history of MN, normal pressure hydrocephalus with shunt, hepatitis B was brought into the ER because of increased confusion. No family present at bedside to give history but per report, she was found hypoxic and confused. She lives at home with constant care. Her daughter found she was worse than her baseline mental status and recently ill with cough and congestion with sick contacts. She had recent UTI for which she was treated with one dose of Rocephin followed by Bactrim. In the ED she was alert and saturating 90% O2 on 2L nasal cannula. Her BP is normal and she had temperature of 100.0 F, HR 99. Chest x-ray compatible with left lower lobe pneumonia, WBC of 15k. EKG showed no acute changes. Blood cultures were obtained and then was given Azithromycin and Rocephin. ABG showed respiratory alkalosis. CT head was negative for any acute changes. Seeing patient in ED she has no complaints for me outside of a cough, otherwise pleasant. Past Med Surg Social Fam HX - Past Medical History Medical history: coronary artery disease, DVT, dementia, hepatitis, hypertension , myocardial infarction, osteoporosis, other Psychiatric history: depression, other - Past Surgical History Surgical History: cataract, hysterectomy, orthopedic, other, other - Social History Smoking Status: Never smoker Smokeless Tobacco Status: No Alcohol use: none Drug use: none - Family History Mother Hx Family Cardiac Disorders: Yes (Heart attack) Internal Medicine - H&P: Meds Memantine [Namenda] 10 mg PO BID 08/30/15 [History] Metoprolol XL (24 HR) Succ [Toprol XL] 25 mg PO QAM 08/30/15 [History] Sertraline [Zoloft] 50 mg PO QAM 08/30/15 [History] Donepezil [Aricept] 10 mg PO HS 04/29/16 [History] Rivaroxaban [Xarelto] 15 mg PO BID 04/29/16 [History] Lisinopril [Zestril] 5 mg PO DAILY #30 tablet 04/30/16 [Rx] Nitroglycerin 0.4 mg SL Q5MIN PRN #25 tab.subl 04/30/16 [Rx] Rosuvastatin Calcium [Crestor] 10 mg PO HS 11/29/16 [History] Cyanocobalamin (B-12) [Vitamin B12] 1,000 mcg PO DAILY #90 tablet 12/01/16 [Rx] Ergocalciferol (VITAMIN D2) [Drisdol (50,000 Unit)] 50,000 unit PO WE 12/10/17 [ History] Fluticasone Propionate Nasal [Flonase] 2 spr NS DAILY PRN 12/10/17 [History] Furosemide [Lasix] 20 mg PO DAILY 12/10/17 [History] Sulfamethoxazole/Trimeth DS [Bactrim DS] 1 each PO DAILY 12/10/17 [History] 3 Allergy/AdvReac Type Severity Reaction Status Date / Time No Known Allergies Allergy Verified 11/29/16 10:09 ROS unobtainable: due to mental status All Systems PM: A 10-system review of systems was performed and is negative for pertinent findings except as documented above in the HPI. - Constitutional Vitals: Temp Pulse Resp BP Pulse Ox 100 F H 99 16 125/74 92 12/10/17 11:30 12/10/17 11:30 12/10/17 11:30 12/10/17 11:30 12/10/17 12:08 General appearance: Present: A&O X 1, pleasant, no acute distress, answers questions appropriately - Head Head exam: Present: atraumatic, normocephalic - Eye Eye exam: Present: PERRL, conjuntiva pink, sclera anicteric Pupils: Present: PERRL - Neck Neck exam general surgery: Present: supple, trachea midline. Absent: lymphadenopathy - Respiratory Respiratory exam: Present: decreased breath sounds, rales. Absent: accessory muscle use, rhonchi, wheezes - Cardiovascular Cardiovascular exam: Present: RRR, +S1, +S2. Absent: diastolic murmur, gallop, rubs, systolic murmur - GI/Abdominal GI/Abdominal exam: Present: normal bowel sounds, soft, no peritoneal signs. Absent: distended, tenderness - Extremities Exam Extremities exam: Present: warm, radial pulses palpable and symmetrical. Absent : calf tenderness, cyanotic, pedal edema - Neurological Exam Neurological exam: Present: CN II-XII intact, oriented X3, no focal deficits. Absent: pronater drift, facial droop, speech deficit - Skin Skin exam: Present: dry, intact Internal Med - H&P Results - Labs CBC & Chem 7: 12/10/17 11:58 12/10/17 11:58
[2017-12-10] MEDS ORDERED: Fluticasone Propionate Nasal 50 MCG/SPRAY BOTTLE NS PRN (16:14)
[2017-12-10] MEDS ORDERED: Nitroglycerin 0.4 MG TAB.SUBL SL PRN (16:14)
[2017-12-10] MEDS: *HR* Rivaroxaban 15 MG TABLET PO SCH (20:43)
[2017-12-10] MEDS ORDERED: Acetaminophen 650 MG RECTAL SUPP RC PRN (23:34)
[2017-12-10] MEDS ORDERED: 0.9 % Sodium Chloride 1,000 ML IVC SCH (23:45)
[2017-12-11] MEDS ORDERED: Acetaminophen 650 MG RECTAL SUPP RC PRN (00:05)
[2017-12-11] MEDS: Acetaminophen 325 MG TABLET PO PRN (00:08)
[2017-12-11 01:06] LABS: Basophils # 0.1 K/mcL (0.0-0.2); Basophils % 0.4 %; Eosinophils % 0.2 %; Hematocrit 35.6 % (35.3-44.9); Hemoglobin 12.3 g/dL (11.5-15.4); Lymphocytes # 2.1 K/mcL (0.6-4.6); Lymphocytes % 11.6 %; Mean Corpuscular HGB Conc 34.6 g/dL (31.6-35.5); Mean Corpuscular Hemoglobin 30.8 pg (28.0-33.3); Mean Platelet Volume 11.8 fL (9.4-12.4); Monocytes # 1.1 K/mcL (0.0-1.3); Monocytes % 5.9 %; Neutrophils # 14.7 K/mcL (1.6-8.9); Nucleated Red Blood Cells 0.2 /100 WBC (0); Platelet Count 263 K/mcL (140-400); Red Cell Distribution Width 14.6 % (11.5-14.5); Segmented Neutrophils % 80.9 %
[2017-12-11 01:56] LABS: Platelet Estimate Normal (Normal)
[2017-12-11 02:19] LABS: BUN/Creatinine Ratio 24 (6-26); Blood Urea Nitrogen 24 mg/dL (8-23); Carbon Dioxide 22 mEq/L (23-29); Chloride 95 mEq/L (98-107); Glucose 127 mg/dL (70-105); Osmolality,Calculated 268 (280-300); Potassium 3.7 mEq/L (3.5-5.1); Sodium 126 mEq/L (136-145); eGFR For African Americans > 60 (> 60); eGFR For Non-African Americans 53 (> 60)
[2017-12-11] MEDS: *HR* Rivaroxaban 15 MG TABLET PO SCH (09:47)
[2017-12-11] MEDS: Cyanocobalamin (B-12) 1,000 MCG TABLET PO SCH (09:48)
[2017-12-11] MEDS: Furosemide 20 MG TABLET PO SCH (09:48)
[2017-12-11] MEDS: Metoprolol XL (24 HR) Succ 25 MG TAB.ER.24H PO SCH (09:48)
[2017-12-11] MEDS: cefTRIAXone 1,000 MG in Water for inj. (sterile) 20 ML 20 ML IVP SCH (14:49)
[2017-12-11] MEDS: Azithromycin 500 MG in D5% in Water 250 ML IVPB SCH (14:49)
--- NOTE | 2017-12-11 18:02 | Internal Med Progress Note ---
Date of Encounter: 12/11/17 Time of Encounter: 11:00 - Assessment and plan (1) Pneumonia Current Visit: Yes Status: Acute Assessment and plan: Patient with a history of productive cough and chest x-ray shows left lower lobe pneumonia We will continue IV ceftriaxone and IV azithromycin Qualifiers: Pneumonia type: due to unspecified organism Laterality: left Lung location: lower lobe of lung Qualified Code(s): J18.1 - Lobar pneumonia, unspecified organism (2) Acute respiratory failure with hypoxia Current Visit: Yes Status: Acute Assessment and plan: Secondary to the above Continue supplemental oxygen to wean as tolerates (3) Encephalopathy Current Visit: Yes Status: Acute Assessment and plan: Patient's cognition returning back to baseline Suspect secondary to pneumonia about (4) Dehydration Current Visit: No Status: Acute Assessment and plan: We will give gentle IV fluids (5) Elevated troponin Current Visit: No Status: Acute Assessment and plan: Suspect secondary to demand ischemia; troponins trending down (6) Dementia Current Visit: No Status: Chronic Assessment and plan: Stable; continue to monitor Qualifiers: Dementia type: unspecified type Dementia behavioral disturbance: without behavioral disturbance Qualified Code(s): F03.90 - Unspecified dementia without behavioral disturbance (7) DVT (deep venous thrombosis) Current Visit: No Status: Acute Assessment and plan: Continue home dose of Xarelto Qualifiers: DVT location: lower extremity Affected thrombotic vein of extremity: unspecified vein of extremity Chronicity: chronic Laterality: unspecified laterality Qualified Code(s): 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 Absent: accessory muscle use, rales, rhonchi, wheezes - Cardiovascular Cardiovascular exam: Present: RRR, +S1, +S2. Absent: diastolic murmur, gallop, rubs, systolic murmur Internal Medicine: Result - Labs CBC & Chem 7: 03/18/18 00:28 12/11/17 00:28 Labs: Short CBC 12/11/17 Range/Units 00:28 WBC 18.2 H (4.3-11.1) K/mcL Hgb 12.3 (11.5-15.4) g/dL Hct 35.6 (35.3-44.9) % Plt Count 263 (140-400) K/mcL Neutrophils # 14.7 H (1.6-8.9) K/mcL BMP 12/11/17 00:28 Sodium 126 L Potassium 3.7 Chloride 95 L Carbon Dioxide 22 L BUN 24 H Creatinine 0.99 Glucose 127 H Calcium 8.0 L Cardiac Enzymes 12/10/17 12/11/17 Range/Units 18:59 10:38 Troponin I 0.09 H* 0.06 H* (< 0.04) ng/mL - ABG Interpretation ABG results: ABG ABG pH 7.48 pH Units (7.32-7.45) H 12/10/17 11:58 ABG pCO2 29 mmHg (35-45) L 12/10/17 11:58 ABG pO2 61 mmHg (85-104) L 12/10/17 11:58 ABG O2 Saturation 93 % (95-98) L 12/10/17 11:58 PT/INR, D-dimer PT 42.8 Seconds (9.4-12.1) H 12/10/17 11:58 Consult Discharge Plan - Plan Referrals: Hayde Dodson DO [Primary Care Provider] -
[2017-12-11] MEDS: 0.9 % Sodium Chloride 1,000 ML IVC SCH (19:25)
[2017-12-12] MEDS: *HR* Rivaroxaban 15 MG TABLET PO SCH ×2 (00:08→09:01)
[2017-12-12] MEDS: Acetaminophen 325 MG TABLET PO PRN (00:12)
[2017-12-12] MEDS: Cyanocobalamin (B-12) 1,000 MCG TABLET PO SCH (09:01)
[2017-12-12] MEDS: Furosemide 20 MG TABLET PO SCH (09:01)
[2017-12-12] MEDS: Metoprolol XL (24 HR) Succ 25 MG TAB.ER.24H PO SCH (09:01)
[2017-12-12 09:18] LABS: Hematocrit 34.1 % (35.3-44.9); Hemoglobin 11.7 g/dL (11.5-15.4); Immature Platelets 10.2 % (1.1-6.1); Mean Corpuscular HGB Conc 34.3 g/dL (31.6-35.5); Mean Corpuscular Hemoglobin 30.5 pg (28.0-33.3); Mean Corpuscular Volume 88.8 fL (83.0-100.0); Mean Platelet Volume 11.6 fL (9.4-12.4); Nucleated Red Blood Cells 0.1 /100 WBC (0); Platelet Count 297 K/mcL (140-400); Red Blood Count 3.84 M/mcL (3.82-4.97); Red Cell Distribution Width 14.7 % (11.5-14.5)
[2017-12-12 09:20] LABS: Lymphocytes # 1.8 K/mcL (0.6-4.6)
[2017-12-12 09:35] LABS: BUN/Creatinine Ratio 27 (6-26); Blood Urea Nitrogen 23 mg/dL (8-23); Calcium 8.5 mg/dL (8.6-10.3); Carbon Dioxide 25 mEq/L (23-29); Chloride 98 mEq/L (98-107); Glucose 102 mg/dL (70-105); Osmolality,Calculated 278 (280-300); Potassium 3.3 mEq/L (3.5-5.1); Sodium 132 mEq/L (136-145); eGFR For African Americans > 60 (> 60); eGFR For Non-African Americans > 60 (> 60)
[2017-12-12 10:28] LABS: Neutrophils # 12.9 K/mcL (1.6-8.9); Platelet Estimate Normal (Normal)
[2017-12-12] MEDS: cefTRIAXone 1,000 MG in Water for inj. (sterile) 20 ML 20 ML IVP SCH (14:34)
[2017-12-12] MEDS: Azithromycin 500 MG in D5% in Water 250 ML IVPB SCH (14:34)
--- NOTE | 2017-12-12 18:52 | Internal Med Progress Note ---
Date of Encounter: 12/12/17 Time of Encounter: 11:00 - Assessment and plan (1) Pneumonia Current Visit: Yes Status: Acute Assessment and plan: Patient with continued productive cough this morning and patient still requires supplemental oxygenation Chest x-ray shows left lower lobe pneumonia Will continue IV ceftriaxone and IV azithromycin Qualifiers: Pneumonia type: due to unspecified organism Laterality: left Lung location: lower lobe of lung Qualified Code(s): J18.1 - Lobar pneumonia, unspecified organism (2) Acute respiratory failure with hypoxia Current Visit: Yes Status: Acute Assessment and plan: Secondary to the above Continue supplemental oxygen to wean as tolerates (3) Encephalopathy Current Visit: Yes Status: Acute Assessment and plan: Patient's cognition returning back to baseline Suspect secondary to pneumonia about (4) Dehydration Current Visit: No Status: Acute Assessment and plan: We will give gentle IV fluids (5) Elevated troponin Current Visit: No Status: Acute Assessment and plan: Suspect secondary to demand ischemia; troponins trending down (6) Dementia Current Visit: No Status: Chronic Assessment and plan: Stable; continue to monitor Qualifiers: Dementia type: unspecified type Dementia behavioral disturbance: without behavioral disturbance Qualified Code(s): F03.90 - Unspecified dementia without behavioral disturbance (7) DVT (deep venous thrombosis) Current Visit: No Status: Acute Assessment and plan: Continue home dose of Xarelto Qualifiers: DVT location: lower extremity Affected thrombotic vein of extremity: unspecified vein of extremity Chronicity: chronic Laterality: unspecified laterality Qualified Code(s): 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 - Subjective Interval history: Patient still with productive cough this morning secondary to community acquired pneumonia Will attempt to wean supplemental oxygenation as tolerates - Constitutional Vitals: Temp Pulse Resp BP Pulse Ox 98.1 F 80 18 108/70 93 12/12/17 14:27 12/12/17 14:27 12/12/17 14:27 12/12/17 14:27 12/12/17 14:27 General appearance: Present: A&O X 1, pleasant, no acute distress, answers questions appropriately Internal Medicine: Result - Labs CBC & Chem 7: 12/12/17 08:25 12/12/17 08:25 Labs: Short CBC 12/12/17 Range/Units 08:25 WBC 14.6 H (4.3-11.1) K/mcL Hgb 11.7 (11.5-15.4) g/dL Hct 34.1 L (35.3-44.9) % Plt Count 297 (140-400) K/mcL Neutrophils # 12.9 H (1.6-8.9) K/mcL BMP 12/12/17 08:25 Sodium 132 L Potassium 3.3 L Chloride 98 Carbon Dioxide 25 BUN 23 Creatinine 0.84 Glucose 102 Calcium 8.5 L - ABG Interpretation ABG results: ABG ABG pH 7.48 pH Units (7.32-7.45) H 12/10/17 11:58 ABG pCO2 29 mmHg (35-45) L 12/10/17 11:58 ABG pO2 61 mmHg (85-104) L 12/10/17 11:58 ABG O2 Saturation 93 % (95-98) L 12/10/17 11:58 PT/INR, D-dimer PT 42.8 Seconds (9.4-12.1) H 12/10/17 11:58 - VTE Documentation of Mechanical Device: Intermittent pneumatic compression device Consult Discharge Plan - Plan Referrals: Hayde Dodson DO [Primary Care Provider] -
[2017-12-12] MEDS: 0.9 % Sodium Chloride 1,000 ML IVC SCH (20:07)
[2017-12-13] MEDS ORDERED: Potassium Chloride Elixir 20 MEQ/15 ML UDC PO ONE (08:15)
[2017-12-13] MEDS: Cyanocobalamin (B-12) 1,000 MCG TABLET PO SCH (08:33)
[2017-12-13] MEDS: Metoprolol XL (24 HR) Succ 25 MG TAB.ER.24H PO SCH (08:33)
[2017-12-13] MEDS: Furosemide 20 MG TABLET PO SCH (08:33)
--- NOTE | 2017-12-13 14:02 | Internal Med Progress Note ---
Date of Encounter: 12/13/17 Time of Encounter: 09:00 - Assessment and plan (1) Pneumonia Current Visit: Yes Status: Acute Assessment and plan: Chest XRay shows left lower lobe Pneumonia; improving clinically; noted to have persistent leukocytosis with some bandemia, monitor closely; continue IV antibiotics- Rocephin and Zithromax- day 4; supplemental O2 and supportive care ; blood cultures negative; urine Legionella and strep pneumoniae Ag negative; Qualifiers: Pneumonia type: due to unspecified organism Laterality: left Lung location: lower lobe of lung Qualified Code(s): J18.1 - Lobar pneumonia, unspecified organism (2) Sepsis Current Visit: Yes Status: Acute Assessment and plan: severe sepsis secondary to Pneumonia; presented with tachycardia and leukocytosis, hypoxemia and altered mental status; improving now; Qualifiers: Sepsis type: sepsis due to unspecified organism Qualified Code(s): A41.9 - Sepsis, unspecified organism (3) Acute respiratory failure with hypoxia Current Visit: Yes Status: Acute Assessment and plan: improving O2 requirements; continues to require 1L/min via NC for now; wean off PRN; (4) 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 Assessment and plan: h/o- DVT and PE; continue Xarelto, dose-adjusted appropriately; (5) Encephalopathy Current Visit: Yes Status: Resolved Assessment and plan: at baseline mental status; PT/OT evaluation noted, recommend ECF placement; pending family decision; 7th grade social studies teacher on board; (6) Hepatitis B Current Visit: Yes Status: Chronic Qualifiers: Viral hepatitis chronicity: chronic Hepatic coma status: without hepatic coma Hepatitis delta agent presence: without delta-agent Qualified Code(s): 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 transplanted heart: [place] heart Associated angina: without angina Qualified Code(s): I25.10 - Atherosclerotic heart disease of [place] coronary artery without angina pectoris (10) Dementia Current Visit: Yes Status: Chronic Qualifiers: Dementia type: Alzheimer's disease Alzheimer's disease onset: late-onset Dementia behavioral disturbance: without behavioral disturbance Qualified Code (s): G30.1 - Alzheimer's disease with late onset; F02.80 - Dementia in other diseases classified elsewhere without behavioral disturbance; F02.80 - Dementia in other diseases classified elsewhere without behavioral disturbance; F02.80 - Dementia in other diseases classified elsewhere without behavioral disturbance (11) HTN (hypertension) Current Visit: Yes Status: Chronic Assessment and plan: BP well-controlled; continue home meds for now; Qualifiers: Hypertension type: essential hypertension Qualified Code(s): I10 - Essential (primary) hypertension - Subjective Interval history: Reports feeling better; continues to have cough, but improved shortness of breath; no chest pain, palpitations; tolerates diet; - Constitutional Vitals: Temp Pulse Resp BP Pulse Ox 98.3 F 87 16 152/93 93 12/13/17 07:33 12/13/17 07:33 12/13/17 07:33 12/13/17 07:33 12/13/17 07:33 General appearance: Present: A&O X 2, answers questions appropriately - Respiratory Respiratory exam: Present: CTAB, rales (bibasal crepts). Absent: accessory muscle use, rhonchi, wheezes - Cardiovascular Cardiovascular exam: Present: RRR, +S1, +S2. Absent: diastolic murmur, gallop, rubs, systolic murmur - GI/Abdominal GI/Abdominal exam: Present: normal bowel sounds, soft, no peritoneal signs. Absent: distended, tenderness - Extremities Exam Extremities exam: Present: full ROM, warm, radial pulses palpable and symmetrical. Absent: calf tenderness, cyanotic, pedal edema - Neurological Exam Neurological exam: Present: CN II-XII intact, oriented X3, no focal deficits. Absent: pronater drift, facial droop, speech deficit Internal Medicine: Result - Labs CBC & Chem 7: 12/12/17 08:25 12/12/17 08:25 - ABG Interpretation ABG results: ABG ABG pH 7.48 pH Units (7.32-7.45) H 12/10/17 11:58 ABG pCO2 29 mmHg (35-45) L 12/10/17 11:58 ABG pO2 61 mmHg (85-104) L 12/10/17 11:58 ABG O2 Saturation 93 % (95-98) L 12/10/17 11:58 PT/INR, D-dimer PT 42.8 Seconds (9.4-12.1) H 12/10/17 11:58 - VTE Documentation of Mechanical Device: Intermittent pneumatic compression device Consult Discharge Plan - Plan Referrals: Hayde Dodson DO [Primary Care Provider] -
[2017-12-13] MEDS: cefTRIAXone 1,000 MG in Water for inj. (sterile) 20 ML 20 ML IVP SCH (15:48)
[2017-12-13] MEDS: Azithromycin 500 MG in D5% in Water 250 ML IVPB SCH (15:48)
[2017-12-13] MEDS: *HR* Rivaroxaban 10 MG TABLET PO SCH (15:48)
[2017-12-14 08:38] LABS: Mycoplasma pneumoniae IgG 0.24 U/L (<=0.09)
[2017-12-14] MEDS: Cyanocobalamin (B-12) 1,000 MCG TABLET PO SCH (09:13)
[2017-12-14] MEDS: Furosemide 20 MG TABLET PO SCH (09:13)
[2017-12-14] MEDS: Metoprolol XL (24 HR) Succ 25 MG TAB.ER.24H PO SCH (09:13)
[2017-12-14 09:14] LABS: Hematocrit 35.5 % (35.3-44.9); Hemoglobin 12.1 g/dL (11.5-15.4); Mean Corpuscular HGB Conc 34.1 g/dL (31.6-35.5); Mean Corpuscular Hemoglobin 30.8 pg (28.0-33.3); Mean Corpuscular Volume 90.3 fL (83.0-100.0); Mean Platelet Volume 11.5 fL (9.4-12.4); Nucleated Red Blood Cells 0.8 /100 WBC (0); Platelet Count 401 K/mcL (140-400); Red Blood Count 3.93 M/mcL (3.82-4.97); Red Cell Distribution Width 15.1 % (11.5-14.5)
[2017-12-14 09:22] LABS: BUN/Creatinine Ratio 20 (6-26); Blood Urea Nitrogen 15 mg/dL (8-23); Carbon Dioxide 24 mEq/L (23-29); Chloride 104 mEq/L (98-107); Glucose 132 mg/dL (70-105); Magnesium 2.1 mg/dL (1.6-2.6); Osmolality,Calculated 289 (280-300); Potassium 3.8 mEq/L (3.5-5.1); Sodium 138 mEq/L (136-145); eGFR For African Americans > 60 (> 60); eGFR For Non-African Americans > 60 (> 60)
[2017-12-14 09:29] LABS: Polychromasia 1+ (Not Present)
[2017-12-14 09:34] LABS: Eosinophils # 0.3 K/mcL (0.0-0.6); Lymphocytes # 1.5 K/mcL (0.6-4.6); Monocytes # 0.3 K/mcL (0.0-1.3); Neutrophils # 9.9 K/mcL (1.6-8.9)
[2017-12-14] MEDS ORDERED: levoFLOXacin 750 MG TABLET PO SCH (10:00)
--- NOTE | 2017-12-14 12:14 | Discharge Summary ---
Date of Encounter: 12/14/17 Time of Encounter: 10:15 - Discharge Diagnosis (1) Pneumonia Priority: Primary Status: Acute Qualifiers: Pneumonia type: due to unspecified organism Laterality: left Lung location: lower lobe of lung Qualified Code(s): J18.1 - Lobar pneumonia, unspecified organism (2) Sepsis Priority: Primary Status: Acute Qualifiers: Sepsis type: sepsis due to unspecified organism Qualified Code(s): A41.9 - Sepsis, unspecified organism (3) Acute respiratory failure with hypoxia Priority: Primary Status: Acute (4) VTE (venous thromboembolism) Priority: Secondary Status: Chronic (5) Encephalopathy Priority: Primary Status: Resolved (6) Hepatitis B Priority: Secondary Status: Chronic Qualifiers: Viral hepatitis chronicity: chronic Hepatic coma status: without hepatic coma Hepatitis delta agent presence: without delta-agent Qualified Code(s): 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 transplanted heart: [place] heart Associated angina: without angina Qualified Code(s): I25.10 - Atherosclerotic heart disease of [place] coronary artery without angina pectoris (10) Dementia Priority: Secondary Status: Chronic Qualifiers: Dementia type: Alzheimer's disease Alzheimer's disease onset: late-onset Dementia behavioral disturbance: without behavioral disturbance Qualified Code (s): G30.1 - Alzheimer's disease with late onset; F02.80 - Dementia in other diseases classified elsewhere without behavioral disturbance; F02.80 - Dementia in other diseases classified elsewhere without behavioral disturbance; F02.80 - Dementia in other diseases classified elsewhere without behavioral disturbance (11) HTN (hypertension) Priority: Secondary Status: Chronic Qualifiers: Hypertension type: essential hypertension Qualified Code(s): I10 - Essential (primary) hypertension Hospital course: Ms. Pillai is a 87 year old female with the above medical problems, who was admitted with shortness of breath and altered mental status. She was noted to be hypoxic, chest x-ray showed left lower lobe pneumonia. She was started on treatment for severe sepsis with IV hydration, IV antibiotics-Rocephin and azithromycin and supplemental oxygen. Patient's mental status gradually returned to normal. She continues to require 2 L/m supplemental oxygen via nasal cannula. Physical and occupational therapy evaluation recommended ECF placement. Family was in agreement, patient is currently medically stable for this transfer. Discharge discussed with: patient - Time Spent with Patient Total time spent providing and/or coordinating discharge services: Greater than 30 minutes (45 min) - Discharge Medications Home Medications: Memantine [Namenda] 10 mg PO BID 08/30/15 [History] Metoprolol XL (24 HR) Succ [Toprol XL] 25 mg PO QAM 08/30/15 [History] Sertraline [Zoloft] 50 mg PO QAM 08/30/15 [History] Donepezil [Aricept] 10 mg PO HS 04/29/16 [History] Lisinopril [Zestril] 5 mg PO DAILY #30 tablet 04/30/16 [Rx] Nitroglycerin 0.4 mg SL Q5MIN PRN #25 tab.subl 04/30/16 [Rx] Rosuvastatin Calcium [Crestor] 10 mg PO HS 11/29/16 [History] Cyanocobalamin (B-12) [Vitamin B12] 1,000 mcg PO DAILY #90 tablet 12/01/16 [Rx] Ergocalciferol (VITAMIN D2) [Drisdol (50,000 Unit)] 50,000 unit PO WE 12/10/17 [ History] Fluticasone Propionate Nasal [Flonase] 2 spr NS DAILY PRN 12/10/17 [History] Furosemide [Lasix] 20 mg PO DAILY 12/10/17 [History] Sulfamethoxazole/Trimeth DS [Bactrim Ds] 1 each PO DAILY 12/10/17 [History] Rivaroxaban [Xarelto] 20 mg PO 1700 tablet 12/14/17 [Rx] levoFLOXacin [Levaquin] 750 mg PO Q48H #3 tablet 12/14/17 [Rx] Allergies/Adverse Reactions: 3 Allergy/AdvReac Type Severity Reaction Status Date / Time gluten Allergy Diarrhea Verified 12/12/17 19:45 Date of admission: 12/10/17 16:50 Primary care physician: Josesito Tony Consults: 12/10/17 18:22 Consult to Payment Collector [CONS] Routine Reason for SW Consult: possible ECF PT [Consult to Physical Therapy] [CONS] Routine Comment: Evaluate, develop and implement POC Reason for Consult: weakness Does patient have active BEDREST order?: No Is patient medically & hemodynamically stable?: Yes 12/10/17 18:23 OT [Consult to Occupational Therapy] [CONS] Routine Comment: Evaluate, develop and implement POC Reason for Consult: weakness Does patient have active BEDREST order?: No Is patient medically & hemodynamically stable?: Yes Discharging clinician: Marielos Lea Anticipated date of discharge: 12/14/17 - Constitutional Vitals: Temp Pulse Resp BP Pulse Ox 98.3 F 83 18 133/81 93 12/14/17 10:12 12/14/17 10:12 12/14/17 10:12 12/14/17 10:12 12/14/17 10:12 General appearance: Present: A&O X 2, answers questions appropriately - Cardiovascular Cardiovascular exam: Present: RRR, +S1, +S2. Absent: diastolic murmur, gallop, rubs, systolic murmur - Patient Status Disposition: Transfer SNF Condition: Fair Functional capacity at discharge: uses cane/walker Overall status at discharge: patient is progressing back to baseline - Discharge Instructions Instructions: Pneumonia (DC) Follow Up With: Hayde Dodson DO [Primary Care Provider] - Additional Instructions: F/up with PCP in 1-2 weeks - Diet and Activity Activity: as per physical therapy, wear oxygen at all times Diet: low fat, low cholesterol, low salt diet - VTE Documentation of Mechanical Device: Intermittent pneumatic compression device
--- NOTE | 2017-12-14 12:26 | Physician Discharge Referral ---
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 Priority: Secondary Status: Chronic (9) CAD (coronary artery disease) Priority: Secondary Status: Chronic (10) Dementia Priority: Secondary Status: Chronic (11) HTN (hypertension) Priority: Secondary Status: Chronic Expected Duration of Placement: 3 weeks Prognosis: Fair Aware of Diagnosis: Patient Aware of Prognosis: Patient - Transfer Medications Home Medications: Memantine [Namenda] 10 mg PO BID 08/30/15 [History] Metoprolol XL (24 HR) Succ [Toprol XL] 25 mg PO QAM 08/30/15 [History] Sertraline [Zoloft] 50 mg PO QAM 08/30/15 [History] Donepezil [Aricept] 10 mg PO HS 04/29/16 [History] Lisinopril [Zestril] 5 mg PO DAILY #30 tablet 04/30/16 [Rx] Nitroglycerin 0.4 mg SL Q5MIN PRN #25 tab.subl 04/30/16 [Rx] Rosuvastatin Calcium [Crestor] 10 mg PO HS 11/29/16 [History] Cyanocobalamin (B-12) [Vitamin B12] 1,000 mcg PO DAILY #90 tablet 12/01/16 [Rx] Ergocalciferol (VITAMIN D2) [Drisdol (50,000 Unit)] 50,000 unit PO WE 12/10/17 [ History] Fluticasone Propionate Nasal [Flonase] 2 spr NS DAILY PRN 12/10/17 [History] Furosemide [Lasix] 20 mg PO DAILY 12/10/17 [History] Sulfamethoxazole/Trimeth DS [Bactrim Ds] 1 each PO DAILY 12/10/17 [History] Rivaroxaban [Xarelto] 20 mg PO 1700 tablet 12/14/17 [Rx] levoFLOXacin [Levaquin] 750 mg PO Q48H #3 tablet 12/14/17 [Rx] Allergies/Adverse Reactions: 3 Allergy/AdvReac Type Severity Reaction Status Date / Time gluten Allergy Diarrhea Verified 12/12/17 19:45 - Respiratory Orders Oxygen / L per min (2L/min via NC) Smoking Cessation: Smoking cessation has been advised. For more information, call the [place] Tobacco Quit Line at 2-679-IGBK-NOW. - Advance Directives Code Status: Full Code - Mobility Orders Ambulate - Rehabiliation Orders Rehab Potential: Fair Rehab Orders: ROM Exercises, Evaluation for Physical Therapy, Evaluation for Occupational Therapy - Diet Orders Cardiac CERTIFICATION: I certify that the transfer of the above named patient to an Extended Care Facility is necessary for the continuing treatment of the diagnosis listed. The above information is true and accurate reflection of patient's current condition. Confidential - Redisclosure prohibited without a patient's written consent.
[2017-12-14 14:43] VITALS: BP 110/73
[2017-12-14] MEDS: *HR* Rivaroxaban 10 MG TABLET PO SCH (15:31)
--- NOTE | 2017-12-14 18:45 | Electrocardiograph Report ---
[address] [place] [address] Test Date: 2017-12-10 Pat Name: Alycia Pillai Department: 102 Room: 3A21 Gender: F [place] Supervisor: Christ : 1930 Requested By: Branden Zarate Order Number: [id number] Reading MD: Zachary Fontanez MD Measurements Intervals Challenge Rate: 98 P: 20 IA: 187 QRS: -52 QRSD: 83 T: 46 QT: 352 QTc: 407 Interpretive Statements SINUS RHYTHM PATTERN CONSISTENT WITH PULMONARY DISEASE INFERIOR MYOCARDIAL INFARCTION, OF INDETERMINATE AGE Poor R wave progression Electronically Signed On 12-14-2017 18:43:24 EDT by Zachary Fontanez MD
== END 2017-12-14 16:14 | DRG 871 ==
LOC: 3ANU 11:24 → EMEROO 11:24 → 3ANU 16:41 → SUATTDRO 16:50 → 3ANU 18:10
PROVIDERS: ADMIT Student in an Organized Health Care Education/Training Program; ATTEND Internal Medicine

== ENCOUNTER 2019-10-10 08:31 | Inpatient (IN) ==
[2019-10-10] MEDS ORDERED: *HR* FentaNYL (PF) 100 MCG/2 ML VIAL IVP ONE (08:54)
[2019-10-10 09:36] LABS: Basophils % 0.4 %; Eosinophils % 0.1 %; Hematocrit 43.9 % (35.3-44.9); Hemoglobin 15.6 g/dL (11.5-15.4); Immature Granulocytes % 0.5 % (0-4); Lymphocytes # 2.4 K/mcL (0.6-4.6); Lymphocytes % 22.2 %; Mean Corpuscular HGB Conc 35.5 g/dL (31.6-35.5); Mean Corpuscular Hemoglobin 31.7 pg (28.0-33.3); Mean Corpuscular Volume 89.2 fL (83.0-100.0); Mean Platelet Volume 12.1 fL (9.4-12.4); Monocytes # 0.7 K/mcL (0.0-1.3); Platelet Count 200 K/mcL (140-400); Red Blood Count 4.92 M/mcL (3.82-4.97); Red Cell Distribution Width 15.3 % (11.5-14.5); Segmented Neutrophils % 70.8 %
[2019-10-10 09:38] LABS: Neutrophils # 7.7 K/mcL (1.6-8.9); White Blood Count 10.8 K/mcL (4.3-11.1)
[2019-10-10 10:02] LABS: BUN/Creatinine Ratio 22 (6-26); Blood Urea Nitrogen 22 mg/dL (8-23); Calcium 9.9 mg/dL (8.6-10.3); Carbon Dioxide 25 mEq/L (23-29); Chloride 100 mEq/L (98-107); Glucose 122 mg/dL (70-105); Osmolality,Calculated 287 (280-300); Sodium 136 mEq/L (136-145); eGFR For African Americans > 60 (> 60); eGFR For Non-African Americans 52 (> 60)
[2019-10-10] MEDS: *HR* HYDROmorphone 2 MG/ML SYRINGE IVP PRN ×3 (10:38→21:58)
[2019-10-10] MEDS ORDERED: Naloxone 0.4 MG/ML INJ IVP PRN (10:39)
[2019-10-10] MEDS ORDERED: D5% in Water 1,000 ML IVC PRN (10:43)
[2019-10-10] MEDS ORDERED: *HR* Dextrose 50 % in Water (Syg) 50 ML SYRINGE IVP PRN (10:43)
[2019-10-10] MEDS ORDERED: Dextrose Gel 15 GM/37.5 ML TUBE PO PRN ×2 (10:43)
[2019-10-10] MEDS ORDERED: *HR* Heparin 5,000 UNIT/ML VIAL IVP ONE (10:45)
[2019-10-10] MEDS ORDERED: *HR* Heparin 5,000 UNIT/ML VIAL IVP PRN ×2 (10:45)
[2019-10-10] MEDS ORDERED: Heparin 25,000 UNIT/250 ML D5W 25,000 UNIT/250 ML IV.SOLN IVC SCH (10:45)
[2019-10-10 10:46] LABS: INR 1.7
[2019-10-10] MEDS ORDERED: Nitroglycerin 0.4 MG TAB.SUBL SL PRN (11:16)
[2019-10-10 13:39] LABS: INR 1.5; Prothrombin Time 16.6 Seconds (9.4-12.1)
[2019-10-10 13:41] LABS: Heparin anti-factor XA UFH 1.04 IU/mL (0.30-0.70)
[2019-10-10 13:43] LABS: Hemoglobin 15.3 g/dL (11.5-15.4); Mean Corpuscular Hemoglobin 31.7 pg (28.0-33.3); Mean Corpuscular Volume 93.4 fL (83.0-100.0); Platelet Count 204 K/mcL (140-400); Red Blood Count 4.82 M/mcL (3.82-4.97); Red Cell Distribution Width 15.1 % (11.5-14.5); White Blood Count 11.6 K/mcL (4.3-11.1)
[2019-10-10] MEDS: Insulin LISPRO 300 UNITS/3 ML VIAL SQ SCH ×2 (15:13→18:28)
[2019-10-10] MEDS: D5% in 0.45% NACL 1,000 ML IVC SCH (15:33)
[2019-10-10] MEDS: *HR* HYDROcodone/Acet 5/325 mg TABLET PO PRN (16:45)
[2019-10-10] MEDS: Heparin 25,000 UNIT/250 ML D5W 25,000 UNIT/250 ML IV.SOLN IVC SCH (17:20)
[2019-10-10 23:35] LABS: Heparin anti-factor XA UFH 1.06 IU/mL (0.30-0.70)
[2019-10-11 00:41] LABS: Activated Partial Thrombo Time 75.9 Seconds (26.0-36.0)
[2019-10-11] MEDS: Insulin LISPRO 300 UNITS/3 ML VIAL SQ SCH ×4 (00:49→22:56)
[2019-10-11] MEDS: *HR* HYDROmorphone 2 MG/ML SYRINGE IVP PRN ×3 (04:26→16:06)
[2019-10-11 07:02] LABS: Basophils % 0.3 %; Eosinophils # 0.1 K/mcL (0.0-0.6); Eosinophils % 1.1 %; Hematocrit 43.8 % (35.3-44.9); Hemoglobin 14.9 g/dL (11.5-15.4); Immature Granulocytes % 0.4 % (0-4); Lymphocytes % 21.7 %; Mean Corpuscular Hemoglobin 31.4 pg (28.0-33.3); Mean Corpuscular Volume 92.4 fL (83.0-100.0); Mean Platelet Volume 11.8 fL (9.4-12.4); Monocytes # 0.9 K/mcL (0.0-1.3); Neutrophils # 6.2 K/mcL (1.6-8.9); Platelet Count 174 K/mcL (140-400); Red Blood Count 4.74 M/mcL (3.82-4.97); Red Cell Distribution Width 15.9 % (11.5-14.5); Segmented Neutrophils % 66.5 %; White Blood Count 9.3 K/mcL (4.3-11.1)
[2019-10-11 07:34] LABS: Calcium 9.1 mg/dL (8.6-10.3); Magnesium 2.2 mg/dL (1.6-2.6); Phosphorous 5.2 mg/dL (2.7-4.5); Potassium 4.4 mEq/L (3.5-5.1)
[2019-10-11] MEDS: Metoprolol XL (24 HR) Succ 25 MG TAB.ER.24H PO SCH (08:39)
[2019-10-11] MEDS: Cyanocobalamin (B-12) 1,000 MCG TABLET PO SCH (08:45)
[2019-10-11] MEDS ORDERED: 0.9 % Sodium Chloride 500 ML IVC ONE (09:11)
[2019-10-11] MEDS: D5% in 0.45% NACL 1,000 ML IVC SCH (10:03)
[2019-10-11] MEDS ORDERED: *HR* FentaNYL (PF) 100 MCG/2 ML VIAL ONE (19:28)
[2019-10-11] MEDS ORDERED: *HR* Midazolam HCl 2 MG/2 ML VIAL ONE (19:28)
[2019-10-11] MEDS ORDERED: Acetaminophen IV 1,000 MG/100 ML INFUS..BTL ONE (19:31)
[2019-10-11] MEDS ORDERED: Famotidine 20 MG/2 ML VIAL ONE (19:32)
[2019-10-11] MEDS ORDERED: Ethanol\\Acetic Acid\\Na Ace\\Ben 1,000 ML IRRIG.SOLN IR ONE (20:08)
[2019-10-11] MEDS ORDERED: *HR* HYDROMORPHONE 2 MG/ML VIAL ONE (20:56)
[2019-10-12] MEDS: Insulin LISPRO 300 UNITS/3 ML VIAL SQ SCH ×3 (01:23→12:18)
[2019-10-12 02:45] LABS: Hematocrit 38.6 % (35.3-44.9); Mean Corpuscular HGB Conc 32.9 g/dL (31.6-35.5); Mean Corpuscular Hemoglobin 32.1 pg (28.0-33.3); Mean Corpuscular Volume 97.5 fL (83.0-100.0); Mean Platelet Volume 12.6 fL (9.4-12.4); Platelet Count 164 K/mcL (140-400); Red Blood Count 3.96 M/mcL (3.82-4.97); White Blood Count 10.9 K/mcL (4.3-11.1)
[2019-10-12 02:49] LABS: Hemoglobin 12.7 g/dL (11.5-15.4)
[2019-10-12 03:04] LABS: BUN/Creatinine Ratio 26 (6-26); Blood Urea Nitrogen 24 mg/dL (8-23); Calcium 8.2 mg/dL (8.6-10.3); Carbon Dioxide 28 mEq/L (23-29); Chloride 100 mEq/L (98-107); Glucose 137 mg/dL (70-105); Osmolality,Calculated 286 (280-300); Potassium 4.3 mEq/L (3.5-5.1); Sodium 135 mEq/L (136-145); eGFR For African Americans > 60 (> 60); eGFR For Non-African Americans 58 (> 60)
[2019-10-12] MEDS: ceFAZolin 2,000 MG in 0.9 % Sodium Chloride 100 ML IVPB SCH ×3 (03:58→20:46)
[2019-10-12] MEDS ORDERED: Heparin 25,000 UNIT/250 ML D5W 25,000 UNIT/250 ML IV.SOLN IVC SCH (08:00)
[2019-10-12] MEDS: Metoprolol XL (24 HR) Succ 25 MG TAB.ER.24H PO SCH (08:13)
[2019-10-12] MEDS: Cyanocobalamin (B-12) 1,000 MCG TABLET PO SCH (08:14)
[2019-10-12] MEDS: *HR* HYDROcodone/Acet 5/325 mg TABLET PO PRN ×2 (12:23→20:45)
[2019-10-12] MEDS: *HR* Rivaroxaban 15 MG TABLET PO SCH (16:50)
[2019-10-12] MEDS: Heparin 25,000 UNIT/250 ML D5W 25,000 UNIT/250 ML IV.SOLN IVC SCH (19:31)
[2019-10-13 01:28] LABS: Hematocrit 36.8 % (35.3-44.9); Hemoglobin 11.8 g/dL (11.5-15.4); Mean Corpuscular HGB Conc 32.1 g/dL (31.6-35.5); Mean Corpuscular Hemoglobin 31.3 pg (28.0-33.3); Mean Corpuscular Volume 97.6 fL (83.0-100.0); Mean Platelet Volume 12.7 fL (9.4-12.4); Platelet Count 167 K/mcL (140-400); Red Blood Count 3.77 M/mcL (3.82-4.97); Red Cell Distribution Width 16.1 % (11.5-14.5); White Blood Count 11.8 K/mcL (4.3-11.1)
[2019-10-13 01:40] LABS: BUN/Creatinine Ratio 23 (6-26); Blood Urea Nitrogen 23 mg/dL (8-23); Calcium 8.2 mg/dL (8.6-10.3); Carbon Dioxide 27 mEq/L (23-29); Chloride 99 mEq/L (98-107); Glucose 146 mg/dL (70-105); Osmolality,Calculated 280 (280-300); Sodium 132 mEq/L (136-145); eGFR For African Americans > 60 (> 60); eGFR For Non-African Americans 54 (> 60)
[2019-10-13] MEDS: Metoprolol XL (24 HR) Succ 25 MG TAB.ER.24H PO SCH (08:43)
[2019-10-13] MEDS: Cyanocobalamin (B-12) 1,000 MCG TABLET PO SCH (08:43)
[2019-10-13] MEDS: *HR* Rivaroxaban 15 MG TABLET PO SCH (17:40)
[2019-10-13] MEDS: Acetaminophen 325 MG TABLET PO PRN (17:40)
[2019-10-13 17:55] LABS: Bilirubin,Urine Negative (Negative); Blood,Urine Negative (Negative); Clarity,Urine Clear (Clear); Color,Urine Yellow (Yellow); Glucose,Urine (UA) Normal (Normal); Ketones,Urine Negative (Negative); Leukocyte Esterase,Urine Small (Negative); Nitrite,Urine Negative (Negative); Protein,Urine 30 mg/dL (Neg-Trace); Specific Gravity,Urine 1.026 (1.010-1.025); Urobilinogen,Urine Normal (Normal)
[2019-10-13 18:02] LABS: Bacteria,Urine None Seen per hpf (None-Few); Hyaline Casts,Urine None Seen per lpf (None-Few); Squamous Epithelial Cell,Urine Many per lpf (None-Few)
[2019-10-14 02:31] LABS: Hematocrit 33.1 % (35.3-44.9); Hemoglobin 11.1 g/dL (11.5-15.4); Mean Corpuscular HGB Conc 33.5 g/dL (31.6-35.5); Mean Corpuscular Hemoglobin 31.7 pg (28.0-33.3); Mean Corpuscular Volume 94.6 fL (83.0-100.0); Mean Platelet Volume 12.2 fL (9.4-12.4); Platelet Count 157 K/mcL (140-400); White Blood Count 11.1 K/mcL (4.3-11.1)
[2019-10-14 02:58] LABS: BUN/Creatinine Ratio 23 (6-26); Blood Urea Nitrogen 16 mg/dL (8-23); Calcium 8.2 mg/dL (8.6-10.3); Carbon Dioxide 26 mEq/L (23-29); Chloride 99 mEq/L (98-107); Glucose 113 mg/dL (70-105); Osmolality,Calculated 274 (280-300); Potassium 4.5 mEq/L (3.5-5.1); Sodium 131 mEq/L (136-145); eGFR For African Americans > 60 (> 60); eGFR For Non-African Americans > 60 (> 60)
[2019-10-14 05:45] VITALS: BP 118/75
[2019-10-14] MEDS: Acetaminophen 325 MG TABLET PO PRN ×2 (05:48→11:24)
[2019-10-14] MEDS: Metoprolol XL (24 HR) Succ 25 MG TAB.ER.24H PO SCH (09:16)
[2019-10-14] MEDS: Cyanocobalamin (B-12) 1,000 MCG TABLET PO SCH (09:16)
== END 2019-10-14 12:04 | DRG 469 ==
LOC: 3NENU 08:31 → EMEROOARM 08:31 → SUATTDRO 13:43 → 3NENU 14:51
PROVIDERS: ADMIT Student in an Organized Health Care Education/Training Program; ATTEND Family Medicine

== ENCOUNTER 2021-07-29 19:05 | Inpatient (IN) ==
[2021-07-29] MEDS ORDERED: Isovue-370 500 ML BOTTLE IVP ONE (19:48)
[2021-07-29 21:03] LABS: Basophils % 0.3 %; Eosinophils % 0.1 %; Hematocrit 42.1 % (35.3-44.9); Hemoglobin 14.2 g/dL (11.5-15.4); Immature Granulocytes % 0.3 % (0-4); Lymphocytes # 1.3 K/mcL (0.6-4.6); Lymphocytes % 11.6 %; Mean Corpuscular HGB Conc 33.7 g/dL (31.6-35.5); Mean Corpuscular Hemoglobin 31.1 pg (28.0-33.3); Mean Corpuscular Volume 92.1 fL (83.0-100.0); Mean Platelet Volume 12.5 fL (9.4-12.4); Monocytes # 0.8 K/mcL (0.0-1.3); Monocytes % 7.3 %; Neutrophils # 9.3 K/mcL (1.6-8.9); Platelet Count 154 K/mcL (140-400); Red Blood Count 4.57 M/mcL (3.82-4.97); Red Cell Distribution Width 14.8 % (11.5-14.5); Segmented Neutrophils % 80.4 %; White Blood Count 11.5 K/mcL (4.3-11.1)
[2021-07-29 21:20] LABS: Albumin 3.5 g/dL (3.5-5.7); Albumin/Globulin Ratio 0.8 (1.1-2.2); Bilirubin,Direct 0.1 mg/dL (0.0-0.2); Bilirubin,Indirect 0.4 mg/dL (0.0-1.0); Bilirubin,Total 0.5 mg/dL (0.3-1.0); Calcium 8.9 mg/dL (8.6-10.3); Globulin 4.6 g/dL (2.4-3.5); Total Protein 8.1 g/dL (6.4-8.9); Troponin I 0.03 ng/mL (< 0.04)
[2021-07-29 23:02] LABS: Influenza A PCR Negative (Negative); Influenza B PCR Negative (Negative); Resp. Syncytial Virus PCR Negative (Negative)
[2021-07-29 23:03] LABS: SARS-CoV-2 by PCR (In House) Negative (Negative)
[2021-07-30 00:19] LABS: Bacteria,Urine Many per hpf (None-Few); Bilirubin,Urine Negative (Negative); Blood,Urine Moderate (Negative); Clarity,Urine Ex.Turbid (Clear); Color,Urine Orange (Yellow); Glucose,Urine (UA) Normal (Normal); Ketones,Urine Negative (Negative); Leukocyte Esterase,Urine Large (Negative); Mucus,Urine Moderate per lpf (None-Few); Nitrite,Urine Negative (Negative); Protein,Urine 100 mg/dL (Neg-Trace); RBC,Urine 30-50 per hpf (0-3); Specific Gravity,Urine > 1.030 (1.010-1.025); Squamous Epithelial Cell,Urine Moderate per hpf (None-Few); Urobilinogen,Urine Normal (Normal); WBC,Urine TNTC per hpf (0-3)
[2021-07-30] MEDS ORDERED: cefTRIAXone 1,000 MG in 0.9 % Sodium Chloride Mini Bag 100 ML IVPB ONE (02:08)
[2021-07-30] MEDS ORDERED: 0.9 % Sodium Chloride 1,000 ML IVC ONE (02:09)
[2021-07-30] MEDS ORDERED: Naloxone 0.4 MG/ML INJ IVP PRN (03:21)
[2021-07-30] MEDS ORDERED: Ondansetron 4 MG/2 ML VIAL IVP PRN (03:21)
[2021-07-30 05:12] LABS: Hematocrit 40.9 % (35.3-44.9); Hemoglobin 14.2 g/dL (11.5-15.4); Mean Corpuscular HGB Conc 34.7 g/dL (31.6-35.5); Mean Corpuscular Hemoglobin 32.1 pg (28.0-33.3); Mean Corpuscular Volume 92.3 fL (83.0-100.0); Mean Platelet Volume 12.5 fL (9.4-12.4); Platelet Count 161 K/mcL (140-400); Red Blood Count 4.43 M/mcL (3.82-4.97); Red Cell Distribution Width 14.8 % (11.5-14.5); White Blood Count 10.8 K/mcL (4.3-11.1)
[2021-07-30 05:34] LABS: Calcium 8.7 mg/dL (8.6-10.3); Potassium 4.2 mEq/L (3.5-5.1)
[2021-07-30] MEDS: Acetaminophen 325 MG TABLET PO PRN ×2 (08:09→20:17)
[2021-07-30] MEDS: 0.9 % Sodium Chloride 1,000 ML IVC SCH ×2 (08:10→17:21)
[2021-07-30] MEDS ORDERED: *HR* Rivaroxaban 10 MG TABLET PO SCH (17:00)
[2021-07-30] MEDS: *HR* Rivaroxaban 15 MG TABLET PO SCH (17:20)
[2021-07-30] MEDS: cefTRIAXone 1,000 MG in 0.9 % Sodium Chloride Mini Bag 100 ML IVPB SCH (17:21)
[2021-07-31 02:29] LABS: Basophils % 0.3 %; Hematocrit 35.8 % (35.3-44.9); Hemoglobin 12.1 g/dL (11.5-15.4); Immature Granulocytes % 0.3 % (0-4); Lymphocytes # 3.2 K/mcL (0.6-4.6); Lymphocytes % 30.3 %; Mean Corpuscular HGB Conc 33.8 g/dL (31.6-35.5); Mean Corpuscular Hemoglobin 31.3 pg (28.0-33.3); Mean Corpuscular Volume 92.7 fL (83.0-100.0); Mean Platelet Volume 12.1 fL (9.4-12.4); Monocytes # 0.9 K/mcL (0.0-1.3); Neutrophils # 6.3 K/mcL (1.6-8.9); Platelet Count 140 K/mcL (140-400); Red Blood Count 3.86 M/mcL (3.82-4.97); Red Cell Distribution Width 15.1 % (11.5-14.5); Segmented Neutrophils % 60.1 %; White Blood Count 10.5 K/mcL (4.3-11.1)
[2021-07-31 02:46] LABS: BUN/Creatinine Ratio 17 (6-26); Blood Urea Nitrogen 16 mg/dL (8-23); Calcium 7.9 mg/dL (8.6-10.3); Carbon Dioxide 21 mEq/L (23-29); Chloride 108 mEq/L (98-107); Glucose 95 mg/dL (70-105); Osmolality,Calculated 283 (280-300); Potassium 3.8 mEq/L (3.5-5.1); Sodium 136 mEq/L (136-145); eGFR For African Americans > 60 (> 60); eGFR For Non-African Americans 56 (> 60)
[2021-07-31] MEDS: Aspirin 81 MG TAB.CHEW PO SCH (09:32)
[2021-07-31] MEDS: *HR* Rivaroxaban 15 MG TABLET PO SCH (17:03)
[2021-07-31] MEDS: Furosemide 20 MG TABLET PO SCH (17:03)
[2021-07-31] MEDS: cefTRIAXone 1,000 MG in 0.9 % Sodium Chloride Mini Bag 100 ML IVPB SCH (17:04)
[2021-07-31] MEDS ORDERED: Metoprolol XL (24 HR) Succ 25 MG TAB.ER.24H PO SCH (18:00)
[2021-08-01] MEDS: Aspirin 81 MG TAB.CHEW PO SCH (08:37)
[2021-08-01] MEDS ORDERED: Calcium Gluconate 1gm/50mL 1 GM/50 ML BAG IVPB ONE (14:34)
[2021-08-01] MEDS ORDERED: 0.9 % Sodium Chloride 1,000 ML IVC SCH (15:00)
[2021-08-01 15:14] VITALS: BP 135/76; PULSE 82; TEMP 97.9; O2SAT 94
[2021-08-01 15:17] LABS: VBG HCO3 24 mEq/L (21-27); VBG PCO2 31 mmHg (41-51); VBG PH 7.49 pH Units (7.32-7.42); VBG PO2 96 mmHg (25-50)
[2021-08-01] MEDS: Furosemide 20 MG TABLET PO SCH (17:39)
== END 2021-08-01 17:55 | disposition short-term general hospital (02) | DRG 871 ==
LOC: 3BNU 19:05 → EMEROOARM 19:05 → 3BNU 07-30 03:44
PROVIDERS: ADMIT Internal Medicine; ATTEND Internal Medicine